=== PATIENT | male | born 1955 | race Hispanic/Latino ===

== ENCOUNTER → 2022-01-24 14:42 | Outpatient (CLI) | payer OTHER, MEDICAID, SELFPAY ==
[2022-01-24 16:13] LABS: Appearance Urine UA CLEAR; Bilirubin Urine UA NEGATIVE (NEGATIVE); Color Urine UA YELLOW; Glucose Urine UA 3+ g/dL (Negative); Ketones Urine UA NEGATIVE (NEGATIVE); Leukocyte Esterase Urine UA NEGATIVE (NEGATIVE); Nitrite Urine UA NEGATIVE (Negative); Occult Blood Urine UA NEGATIVE (Negative); Protein Urine UA NEGATIVE (Negative); Specific Gravity Urine UA 1.015 (1.000-1.035); Urobilinogen Urine UA 0.2 E.U./dL (0.2)
[2022-01-24 16:16] LABS: Add Manual Diff / Slide Review NO; Basophils Absolute Auto 0 /uL (0-100); Basophils Percent Auto 0.2 % (0-2); Eosinophils Absolute Auto 100 /uL (0-450); Eosinophils Percent Auto 1.9 % (2-4); Hemoglobin 14.7 g/dL (13.5-17.5); Lymphocytes Absolute Auto 2300 /uL (1100-4500); Lymphocytes Percent Auto 29.8 % (25-40); Mean Corpuscular HGB Conc 34.2 % (30-36); Mean Corpuscular Hemoglobin 28.8 PG (26-34); Mean Corpuscular Volume 84.3 fL (80-100); Monocytes Absolute Auto 400 /uL (0-900); Monocytes Percent Auto 4.9 % (3-14); Neutrophils Absolute Auto 4900 /uL (1500-7000); Neutrophils Percent Auto 63.2 % (50-75); Platelet Count 221 X10^3/uL (150-400); Red Blood Cell Count 5.09 X10^6/uL (4.5-5.9); Red Cell Distribution Width 13.8 % (11.6-14.8); White Blood Cell Count 7.7 X10^3/uL (4.5-11.0)
[2022-01-24 16:18] LABS: Bacteria Urine None Seen; Calcium Oxalate Crystals Urine Few; Culture Indicated Urine Cult Not Indicated; RBC Urine None Seen (0-5/HPF); WBC Urine None Seen (0-5/HPF)
[2022-01-24 16:24] LABS: Hemoglobin A1C% w Est Avg Glu 13.7 % (4.0-6.0)
[2022-01-24 16:40] LABS: Creatinine Urine Random 86.8 mg/dL
[2022-01-24 16:54] LABS: Protein (Total) Urine Random < 5 mg/dL (0-12); Protein Creatinine Ratio Urine 0.05 GRAM/24H
[2022-01-24 17:23] LABS: Alanine Aminotransferase 22 IU/L (<50); Albumin 4.3 g/dL (3.5-5.0); Albumin Globulin Ratio 1.3 (1.0-2.8); Alkaline Phosphatase 74 U/L (38-126); Aspartate Aminotransferase 22 IU/L (17-59); BUN Creatinine Ratio 30.6 (6-22); Bilirubin Total 0.5 mg/dL (0.2-1.3); Blood Urea Nitrogen 19 mg/dL (9-20); Calcium 9.5 mg/dL (8.4-10.2); Carbon Dioxide 29 mmol/L (22-32); Chloride 96 mmol/L (98-107); Cholesterol 216 mg/dL (140-199); Estimated Glomerular Filt Rate > 60 mL/min (>60); Globulin 3.4 g/dL (1.7-4.1); Glucose 322 mg/dL (80-110); HDL Cholesterol 39 mg/dL (40-60); HEMOLYSIS < 15 (0-50); LDL Cholesterol Calculated 126 mg/dL (<100); Potassium 4.3 mmol/L (3.4-5.1); Sodium 137 mmol/L (137-145); Total Protein 7.7 g/dL (6.3-8.2); Triglycerides 254 mg/dL (35-150)
== END ==
PROVIDERS: PCP Family Medicine; Referring Provider Family Medicine; Visit Provider Family Medicine
DX: E11.65 Type 2 diabetes mellitus with hyperglycemia (principal)
CPT/HCPCS: 36415; 80053; 80061; 81001; 82570; 83036; 84156; 85025

== ENCOUNTER → 2022-05-11 13:46 | Outpatient (CLI) | payer OTHER, MEDICAID, SELFPAY ==
--- NOTE | 2022-05-30 13:44 | DIAB.INIT ---
Addendum entered by Rupa Tinajero 06/01/22 17:31: Called Marie today: Taking 18u Levemir with FBG 290-300. BG in evening are 210-250. Unusually that FBG are higher than last call despite increase in insulin. Reminded him to be sure he is fasting for morning blood sugars and to follow titration schedule from provider. Encouraged an increase to 22u tonight. Will see him for follow-up next week. Addendum entered by Rupa Tinajero 05/30/22 14:08: Called Marie on 05/18: reports itching has not improved. Reports FBG recently 150-220mg/dl (improved from visit). Currently on 10u Levemir. We reviewed titration schedule. Original Note: Initial Diabetes Education Assessment Name: Marie Francisco Date: 05/11/22 Time: 2-310p Dx: Type II Diabetes Provider: Susy Marie presents today with step daughter, Johanna. Attempted to use telephonic staff analyst, however was unsuccessful due to translation phone was not working properly. Johanna interpreted for today's appointment. Reports Dm dx for 20 years. +FH of DM with mother and sister. Marie reports he dislikes taking so many pills and is happy to be starting insulin. He believes the pills are making him feel sick and itchy. Current symptoms include: diarrhea ~1x/2 wks, little appetite, itchy sensations, feeling of sickness.?Has not picked up insulin yet. Needs additional info on how to inject. Diet Recall: B: (8:30 am, sometimes noon) 2 corn or flour quesadillas with 2 scrambled eggs, cheese, and 1/4 cup beans OR fruit smoothie - fiber, cactus, aloe, cucumber, chayote, water OR leftovers if wakes up later - potato and eggs OR pancakes.? L: (1:30-2:00 am) chx soup with veggies and 1 cup of rice on side OR spaghetti. S: sometimes cup of noodle soup 1-2x/wk. D: (5:30-6:00 pm) 3 taquitos?with beans and salsa OR occasionally?no dinner.? S: peanuts or sunflower seeds. Fluids: 24 oz coffee with 4 oz milk and 2 packets splenda, ~8 oz water, occasionally 12 oz milk.? Marie lives with and stepdaughter, who run a childcare program at home. Anthropometrics: Ht: 5'7 Wt: 159# Weight history: No recent wt loss. When diagnosed 20 years ago, lost wt due to cutting out sugar, ie soda. At that time, UBW was between 170-180 lbs.? Physical Activity: : No program. Reports being depressed due to weather (used to live in [place]). Has a hard time walking due to knee pain. Self-Monitoring Blood Glucose: Reports checking FBG every morning, all elevated. Recent FBG 05/06 - 251 05/07 - 231 05/08 - 180 05/09 - 213 05/10 - 223 05/11 - Diabetes Medications: Metformin 1000mg Glyburide 5mg Rx: Victoza 1.2 Rx: Levemir 10u HS (inc by 4u q 3 days if BG >180) per provider notes Pertinent Labs: HgA1c: 9.8%?Apr 2022 Past Medical History: Reported: HTN, HLD, eye/vision problems, diarrhea, numbness/tingling in extremities, weakness Intervention: This participant was very receptive. Provided appropriate educational handouts. Discussed the following topics: Completed intake assessment. Discussed barriers to care. Reviewed insulin use: how to inject safely, precautions, disposal Reviewed Bahamian handout on hypoglycemia tx Reviewed Bahamian handout on plate method and carb counting Recommend BG checks when feeling s/s of lows Encouraged safe physical activity, even seated exercise if able Created SMART goals for patient self-care and success. Goals: When weak and/or shaky, check BG Start new medications Drink 2 glasses of water/day min Follow-up: JAVON HALE follow-up in 1 week via phone to review how insulin regimen is going. Then 1:1 follow-up in one month Rupa Tinajero RDN, GEOFFREY Certified Diabetes Care and Rn X Ray P: [phone] Thank you for this referral
== END ==
PROVIDERS: PCP Family Medicine; Referring Provider Family Medicine; Visit Provider Family Medicine
DX: E11.9 Type 2 diabetes mellitus without complications (principal); Z79.84 Long term (current) use of oral hypoglycemic drugs; Z79.4 Long term (current) use of insulin; Z71.3 Dietary counseling and surveillance
CPT/HCPCS: G0108

== ENCOUNTER → 2022-06-07 14:47 | Outpatient (CLI) | payer MEDICAID, SELFPAY ==
--- NOTE | 2022-06-09 10:30 | DIAB.FU ---
Addendum entered by Rupa Tinajero 06/09/22 10:53: Called pt today and LVM with parts interpreter. Johanna (daughter) called back. Confirmed he is not taking DM oral meds. Is taking his statin. BG much improved over the last two days with FBG 174 and 164mg/dl. Encouraged increase by 2u tomorrow night if FBG tomorrow is >150mg/dl. She verbalized understanding. Original Note: Follow-up Diabetes Education Assessment Name: Marie Francisco Date: 06/07/22 Time: 320-415p Dx: Type II Diabetes Provider: Susy Salazar presents for follow-up DM education. Daughter normally translates but is not here today. Use of Argentine telephonic freelance interpreter/translator used. Reports since d/c of oral DM meds GI is much improved. Was taking med with food, which did not help per report. Reports very limited appetite, which may be a r/t of GLP1 RA. Endorses 2 eating occurrences per day (9am: eggs, beans, two tortillas; 4p: soup with 2-3 tortillas). Also endorses limited water in a day, 8oz. Continues to have pruritis. States this will keep him up at night. Plans to see underwear trimmer Anthropometrics: Ht: 67 Wt: 146.6# today Weight history: Down 12# since last visit 05/11. This is concerning for malnutrition. Physical Activity: No program currently. Main barrier is concerns for weakness and knee pain. Self-Monitoring Blood Glucose: BG continue to be elevated despite increase in insulin, however this may also be r/t the d/c of oral medication. Will then needs additional insulin for coverage. Also, has not continued titration since last phone discussion. Date Pre Post Pre Post Pre Post HS 06/01 262 216 3/2 233 297 06/03 218 242 /4 281 242 5 250 260 06/06 204 228 06/07 194 Diabetes Medications: Metformin 1000mg - not taking Glyburide 5mg - not taking Victoza 1.2 Levemir 20u HS (inc by 4u q 3 days if BG >180) per provider notes Pertinent Labs: HgA1c: 9.8%?Apr 2022 Past Medical History: Reported: HTN, HLD, eye/vision problems, diarrhea, numbness/tingling in extremities, weakness Intervention: This participant was very receptive. Provided appropriate educational handouts. Discussed the following topics: Recent blood sugar results and trends Medication management: increasing insulin by 4u tonight, consistent with PCP titration schedule Importance of consistent kcal and pro intake How Victoza may impact appetite Impact of pruritis on his sleep and overall health, including sleep and BG Physical activity plan and impact on blood sugars Fluids intake recs Created SMART goals for patient self-care and success. Goals: When weak and/or shaky, check BG- continue Start new medications- met Drink 2 glasses of water/day min- in progress Increase insulin to 24u tonight- new Eat 3x per day or more- new Follow-up: JAVON HALE follow-up in 3-4 weeks. Will call in 2-3 days to follow-up on BG and titration schedule. Rupa Tinajero RDN, CDCES Certified Diabetes Care and Autos Disassembler P: [phone] Thank you for this referral
== END ==
PROVIDERS: PCP Family Medicine; Referring Provider Family Medicine; Visit Provider Family Medicine
DX: E11.9 Type 2 diabetes mellitus without complications (principal); Z79.84 Long term (current) use of oral hypoglycemic drugs; Z79.4 Long term (current) use of insulin; Z71.3 Dietary counseling and surveillance
CPT/HCPCS: G0108

== ENCOUNTER → 2022-06-30 14:51 | Outpatient (CLI) | payer MEDICAID, SELFPAY ==
--- NOTE | 2022-07-15 10:42 | DIAB.FU ---
Addendum entered by Rupa Tinajero 07/15/22 16:25: Called and LVM to call back to review insulin titration and BG Original Note: Follow-up Diabetes Education Assessment Name: Marie Francisco Date: 06/30/22 Time: Dx: Type II Diabetes Provider: Susy Salazar presents for follow-up. Declined spanish interpreter/translator. Did not bring his family member to translate. States he can understand most Grenadian. Reports improved strength recently and working a couple days per week. Still struggling with sleep and feeling itchy. Has senior software development engineer appt scheduled. Weight has improved by almost 2#. Did not increase insulin as discussed over the phone. Still at 20u HS. BG still elevated. Increased water intake since last visit. Current carb intake continues to be moderate to low. Eating twice per day. Anthropometrics: Ht: 67 Wt: 148.2# today Last Wt: 146.6# 06/07/22 Physical Activity: No program Self-Monitoring Blood Glucose: Higher than those reported over last phone call. Reports FBG 176-262 and HS readings 216-394 mg/dl. Has not increased insulin as discussed. Diabetes Medications: Metformin 1000mg - not taking Glyburide 5mg - not taking Victoza 1.2 Levemir 20u HS (inc by 4u q 3 days if BG >180) per provider notes Pertinent Labs: HgA1c: 9.8%?Apr 2022 Past Medical History: Reported: HTN, HLD, eye/vision problems, diarrhea, numbness/tingling in extremities, weakness Intervention: This participant was very receptive. Provided appropriate educational handouts. Discussed the following topics: Recent blood sugar results and trends Medication management and increasing insulin Impact of elevated BG on health and potentially skin Review of general nutrition recommendations and current intake Provided insulin titration scheduled in Grenadian and Kinyarwanda with his help Created SMART goals for patient self-care and success. Goals: Drink 2 glasses of water/day min- met Increase insulin to 24u tonight-not met Eat 3x per day or more- in progress Tonight 24u insulin Every 2-3 days increase insulin by 4 u until <180mg/dl Then increase q 2-3 days by 2u until <150mg/dl Follow-up: JAVON HALE follow-up in 3 weeks for phone call and 4-5 weeks 1:1 follow-up Rupa Tinajero RDN, GEOFFREY Certified Diabetes Care and Park Services Specialist P: [phone] Thank you for this referral
== END ==
PROVIDERS: PCP Family Medicine; Referring Provider Family Medicine; Visit Provider Family Medicine
DX: E11.9 Type 2 diabetes mellitus without complications (principal); Z79.4 Long term (current) use of insulin; Z79.84 Long term (current) use of oral hypoglycemic drugs; Z71.3 Dietary counseling and surveillance
CPT/HCPCS: G0108

== ENCOUNTER → 2022-08-04 14:18 | Outpatient (CLI) | payer MEDICARE, MEDICAID, SELFPAY ==
--- NOTE | 2022-08-04 16:07 | DIAB.MNTFU ---
Follow-up Diabetes Medical Nutrition Therapy Assessment Name: Marie Francisco Date: 08/04/22 Time: 235-315p Dx: Type II Diabetes Marie presents today for diabetes follow-up. Blood sugars finally improving; however, he did not titrate how we discussed last visit. Up to 26u and still having some elevations. States he feels blood sugars have improved some with more activity, working a few days per week inconsistently. Reports some improvement in pruritis, though most irritating at night. Despite this, states his sleep has improved. 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 Diet recall indicates eating 2-3x per day. Not a big change in weight. Still some concern for underweight/malnutrition. Started making a homemade tea with herbs (cinnamon, oregano, patricio, and mint). Feels this is helping his BG. Diet Recall: 7-8a: nothing or egg with 2-3 6 tortillas with cheese and beans 2-230p: 1/2c rice, with meat 7p: nothing or eggs with spoon of beans and spoon of rice or just 2 tortillas with egg Beverages: homemade tea with herbs, water, coffee with 1/3 c milk Anthropometrics: Ht: 67 Wt: 148.6# today Wt hx: 148.2# 06/30/22 146.6# 06/07/22 originally reported 159# at first RD visit Physical Activity: No program. 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 Does c/o knee pain with exercise. No exercise on days without work. States he is open to short walks on days off. Self-Monitoring Blood Glucose: 6/7 elevated FBG and 5/6 elevated 1 hour after dinner readings. Date Pre Post Pre Post Pre Post HS 187 310 224 229 146 254 121 183 170 254 180 156 163 Diabetes Medications: Victoza 1.2 Levemir 26u HS (inc by 4u q 3 days if BG >180) per provider notes Pertinent Labs: HgA1c: 9.8%?Apr 2022 Past Medical History: Reported: HTN, HLD, eye/vision problems, diarrhea, numbness/tingling in extremities, weakness Nutrition Rx: Carbohydrates: Meal:45g Snack:15-30g Nutrition Diagnosis: Inadequate energy intake r/t limited appetite aeb pt report and diet recall Physical inactivity r/t no program on days off, knee pain, and potentially stage of change barrier aeb pt report Intervention: This participant was very receptive. Provided appropriate educational handouts. Discussed the following topics: Blood sugar review and trends. Insulin titration Physical activity and impact on BG Importance of balanced meals and snacks and eating frequency Rule of 15 tx for lows Created SMART goals for patient self-care and success. Goals: Tonight 24u insulin- met Every 2-3 days increase insulin by 4 u until <180mg/dl- met Then increase q 2-3 days by 2u until <150mg/dl- not met Increase to 28u tonight- new Eat 3x per day- new Walk on days off- new Follow-up: JAVON HALE follow-up in 3-4 weeks Rupa Tinajero RDN, CAINES Certified Diabetes Care and Energy Efficient Site Manager P: [phone] Thank you for this referral
== END ==
PROVIDERS: PCP Family Medicine; Referring Provider Family Medicine; Visit Provider Family Medicine
DX: E11.9 Type 2 diabetes mellitus without complications (principal); Z79.84 Long term (current) use of oral hypoglycemic drugs; Z79.4 Long term (current) use of insulin; Z71.3 Dietary counseling and surveillance
CPT/HCPCS: 97803

== ENCOUNTER → 2022-08-30 07:12 | Outpatient (CLI) | payer MEDICARE, MEDICAID, SELFPAY ==
[2022-08-30 09:11] LABS: Creatinine Urine Random 160.9 mg/dL
[2022-08-30 09:14] LABS: Microalbumi Creatinin Ratio Ur 4.3 ug/mg CR (<30); Microalbumin Urine Random 0.7 mg/dL (0-1.6)
[2022-08-31 02:07] LABS: x Labcorp Estim. Avg Glu (eAG) 209 mg/dL (.); x Labcorp Hemoglobin A1c 8.9 % (4.8-5.6)
== END ==
PROVIDERS: PCP Family Medicine; Referring Provider Family Medicine; Visit Provider Family Medicine
DX: E11.65 Type 2 diabetes mellitus with hyperglycemia (principal)
CPT/HCPCS: 36415; 82043; 82570; 83036

== ENCOUNTER → 2022-10-28 16:07 | Outpatient (CLI) | payer MEDICARE, MEDICAID, SELFPAY ==
[2022-10-28 17:49] LABS: Hematocrit 41.9 % (41-53); Hemoglobin 14.2 g/dL (13.5-17.5); Mean Corpuscular HGB Conc 33.9 % (30-36); Mean Corpuscular Hemoglobin 28.2 PG (26-34); Mean Corpuscular Volume 83.3 fL (80-100); Platelet Count 198 X10^3/uL (150-400); Red Blood Cell Count 5.03 X10^6/uL (4.5-5.9); Red Cell Distribution Width 13.4 % (11.6-14.8); White Blood Cell Count 7.9 X10^3/uL (4.5-11.0)
[2022-10-28 18:38] LABS: Alanine Aminotransferase 22 IU/L (<50); Albumin 4.5 g/dL (3.5-5.0); Albumin Globulin Ratio 1.5 (1.0-2.8); Alkaline Phosphatase 77 U/L (38-126); Aspartate Aminotransferase 21 IU/L (17-59); BUN Creatinine Ratio 31.7 (6-22); Bilirubin Total 0.5 mg/dL (0.2-1.3); Blood Urea Nitrogen 19 mg/dL (9-20); Calcium 9.5 mg/dL (8.4-10.2); Carbon Dioxide 31 mmol/L (22-32); Chloride 98 mmol/L (98-107); Cholesterol 209 mg/dL (140-199); Estimated Glomerular Filt Rate > 60 mL/min (>60); Globulin 3.1 g/dL (1.7-4.1); Glucose 257 mg/dL (80-110); HDL Cholesterol 45 mg/dL (40-60); HEMOLYSIS < 15 (0-50); LDL Cholesterol Calculated 123 mg/dL (<100); Potassium 4.2 mmol/L (3.4-5.1); Sodium 138 mmol/L (137-145); Total Protein 7.6 g/dL (6.3-8.2); Triglycerides 206 mg/dL (35-150)
[2022-10-28 19:07] LABS: TSH w/ Reflex to FT4 2.39 uIU/mL (0.47-4.68)
== END ==
PROVIDERS: PCP Internal Medicine; Referring Provider Internal Medicine; Visit Provider Internal Medicine
DX: C18.9 Malignant neoplasm of colon, unspecified (principal); E11.42 Type 2 diabetes mellitus with diabetic polyneuropathy; E78.2 Mixed hyperlipidemia
CPT/HCPCS: 36415; 80053; 80061; 82378; 84443; 85027

== ENCOUNTER → 2022-11-18 09:17 | Outpatient (CLI) | payer MEDICARE, OTHER, MEDICAID, SELFPAY ==
--- NOTE | 2022-11-18 09:19 | DI.CT.S_ITS ---
PROCEDURE: CT ABDOMEN PELVIS W CON INDICATIONS: Upper abdominal pain, unspecified TECHNIQUE: After the administration of oral and intravenous contrast, axial sections were acquired from the lung bases to the pubic symphysis. Coronal and sagittal reformats were performed. For radiation dose reduction, the following was used: automated exposure control, adjustment of mA and/or kV according to patient size. COMPARISON:None. FINDINGS: Image quality: Excellent. Lung bases: Unremarkable. Heart: Mild coronary artery calcifications. ABDOMEN: Liver: Unremarkable. Gallbladder: Unremarkable. Biliary ducts: Unremarkable. Pancreas: Unremarkable. Spleen: Unremarkable. Adrenal Glands: Unremarkable. Kidneys and Ureters: Unremarkable. Stomach and Bowel: Stomach, small bowel loops, and colon are unremarkable. Duodenal diverticulum. Normal appendix. Peritoneum: No abnormal intraperitoneal fluid. No free air. Ventral Wall: No hernia. Abdominal Nodes: No retroperitoneal or mesenteric adenopathy by size criteria. Vessels: Aorta and inferior vena cava are normal in size. Atherosclerotic vascular calcifications. PELVIS: Pelvic Organs: Unremarkable. Bladder: Unremarkable. Pelvic Nodes: No enlarged lymph nodes. Miscellaneous: No inguinal hernias are seen. Bones: Mild degenerative changes of the spine. IMPRESSION: No cause for patient's symptoms is identified. No acute intra-abdominal findings. Dictated by: Adrian Murphy M.D. on 11/18/2022 at 13:47 Approved by: Adrian Murphy M.D. on 11/18/2022 at 13:53
== END ==
PROVIDERS: PCP Internal Medicine; Referring Provider Internal Medicine; Visit Provider Internal Medicine
DX: R10.10 Upper abdominal pain, unspecified (principal); I25.10 Atherosclerotic heart disease of native coronary artery without angina pectoris; N32.3 Diverticulum of bladder
CPT/HCPCS: 74177; Q9967

== ENCOUNTER 2022-12-13 13:01 | Day surgery (SDC) | payer MEDICARE, MEDICAID, SELFPAY ==
--- NOTE | 2022-12-13 | PATH_ITS ---
[facility] Accession Number: [id number] No. of containers..01 Tissue . 01 Material submitted: . colon - ASCENDING COLON POLYPS . 01 Diagnosis: Ascending Colon Polyps, Biopsy: Foreign body material only. No colonic tissue identified. MRV 12/21/2022 1129 Local . 01 Electronically signed: . Alivia Walker MD, Pathologist NPI- [id number] . 01 Gross description: . ASCENDING COLON POLYPS: Received in formalin is multiple fragment(s) of dawkins, soft tissue measuring 1.0 x 0.5 x 0.1 cm in aggregate submitted entirely in 1 cassette(s) /AAY 12/15/2022 2346 Local . 01 Pathologist provided ICD-10: Z12.11 . 01 CPT . 447124 Specimen Comment: A courtesy copy of this report has been sent to [phone] Performed at: 01 [facility] [address] [place] [address] [id number] MD Christopher Ram MD Phone: [phone]
[2022-12-13] MEDS: LACTATED RINGERS 1,000 ML 200 ML IV (13:46)
[2022-12-13 13:50] VITALS: BP 127/85; PULSE 97; RESP 16; TEMP 36.2; O2SAT 97
--- NOTE | 2022-12-13 14:07 | PM.HP.1 ---
History of Present Illness History of Present Illness Date Patient Seen: 12/13/22 Time Patient Seen: 14:07 [address]: [facility] Narrative: 67-year-old man with abdominal pain here for diagnostic esophagoduodenoscopy and screening colonoscopy. No interval change in health. Please refer to the H and P from November 2022 for further detail. [facility] Medical History Mixed hyperlipidemia Pain of upper abdomen Type 2 diabetes mellitus with polyneuropathy Social History marital status: unknown household members: spouse and family lives independently: Yes occupational status: previously employed Smoking Status: Former smoker Tobacco: How many years used: 7 alcohol intake: never substance use type: does not use Meds Home Medications and Allergies Home Medications Medication Instructions Recorded Confirmed Type blood-glucose meter #1 ea 05/02/22 11/28/22 Rx blood sugar diagnostic (Blood #100 ea 05/31/22 11/28/22 Rx Glucose Test strips) lancets 33 gauge (BD Ultra Fine #100 ea 05/31/22 11/28/22 Rx Lancets) atorvastatin 40 mg tablet 40 mg PO BEDTIME #90 tabs 06/21/22 12/13/22 Rx liraglutide 0.6 mg/0.1 mL (18 mg/3 1.2 mg (0.2 mL) SUBCUT DAILY #6 mL 09/30/22 12/13/22 Rx mL) subcutaneous pen injector (Victoza 2-Travis) Disabled Parking Permit 1 ea Not Applicable DAILY #1 ea 10/28/22 11/28/22 Rx Walking Cane #1 ea 10/28/22 11/28/22 Rx pen needle, diabetic 31 gauge x #1,200 ea 10/28/22 11/28/22 History 5/16 (1st Tier Unifine Pentips) Allergies Allergy/AdvReac Type Severity Reaction Status Date / Time metformin AdvReac Intermediate Diarrhea Verified 12/13/22 13:30 Exam Vital Signs (past 8 hours): - 12/13/22 13:50 Temperature 97.2 F L Pulse Rate 97 H Respiratory Rate 16 Blood Pressure 127/85 Pulse Oximetry 97 Oxygen Delivery Method Room Air Oxygen Delivery Method Room Air Narrative Exam Narrative: General adult man alert oriented no acute distress Abdomen soft nontender nondistended Assessment & Plan Assessment and plan (1) Pain of upper abdomen: Status: Acute Assessment & Plan narrative: 67-year-old man history of peptic ulcer disease here for diagnostic esophagoduodenoscopy and colonoscopy. Technical details were discussed. Risks, benefits, alternatives explained. Risks including but not limited to myocardial infarction, aspiration, bleeding, pain, missed lesion, incomplete examination, need for further radiographic studies, colonic perforation, and need for major abdominal surgery were discussed. All questions were answered to their satisfaction, and they are in agreement with this plan.
--- NOTE | 2022-12-13 14:13 | PM.OP.EC ---
Operative Date/Time/Diagnoses Date of procedure: 12/13/22 Time of procedure: 14:13 Pre-op diagnosis: Abdominal pain Post-op diagnosis: other (Colonic polyps x2) Procedure & Clinicians Study performed: Esophagoduodenoscopy colonoscopy Same procedure as scheduled: Yes Indications: 67-year-old man with history of gastric ulcer with abdominal pain here for diagnostic esophagoduodenoscopy and screening colonoscopy Surgeon: Elie Quinn Procedure Notes Procedure in detail: The history and physical was performed/updated and the patient is ASA class is 2. The procedure was discussed in detail with the patient. Potential risks complications including infection, bleeding, missed diagnosis, perforation, need for surgery, and were explained. Their questions were answered and informed consent was obtained. Patient placed in left lateral decubitus position. Time out was performed. Procedural sedation was administered by Anesthesia. A bite block was placed. the scope was inserted into the mouth and advanced through the esophagus and into the stomach. The stomach was without masses, ulcers or gastritis. The pylorus was intubated and the duodenum was normal to the 2nd portion. The scope was withdrawn into the esophagus the Z line was seen at 35 cm from the incisions. There was no Lyman's esophagitis, esophageal masses or strictures. Stomach was desufflated and scope removed. Examination began with a thorough inspection of the perianal area there was no evidence of fissures, fistulae, external hemorrhoids or cutaneous malignancy. The colonoscopy scope was then placed into the anal canal and was advanced to the cecum, which was identified by the ileocecal valve, the appendiceal orifice and the confluence of the taenia. The scope was then slowly withdrawn examining colon thoroughly in all directions, irrigating it of any residual stool. Ascending colon-3-5 mm polyps x2 removed with cold snare. Remainder of the colon unremarkable The patient tolerated the procedure well. They will be discharged once criteria are met. The prep was of good/excellent quality. The withdrawl time was 6 minutes. Specimen(s): none sent (Ascending colon polyps) Impression: Unremarkable upper endoscopy. Colonic polyps x2 Post-procedure Plan for aftercare: Follow-up is dependent on pathology findings likely 5 years Disposition: same day surgery
[2022-12-13 14:15] VITALS: BMI 23.5
[2022-12-13 14:40] VITALS: BP 98/67; PULSE 86; RESP 15; TEMP 36.9; O2SAT 96
[2022-12-13 14:45] VITALS: BP 99/70; PULSE 83; RESP 13; TEMP 36.9; O2SAT 96
[2022-12-13 14:55] VITALS: BP 111/75; PULSE 81; RESP 13; O2SAT 96
[2022-12-13 15:00] VITALS: BP 130/78; PULSE 86; RESP 15; O2SAT 97
[2022-12-13 15:15] VITALS: BP 130/85; PULSE 86; RESP 14; O2SAT 96
== END 2022-12-13 15:30 | disposition home or self-care (01) ==
PROVIDERS: PCP Internal Medicine; Referring Provider Surgery; Visit Provider Surgery
PROC: 0DJ08ZZ Inspection of Upper Intestinal Tract, Via Natural or Artificial Opening Endoscopic (ICD-10-PCS; CPT 43235; principal; 2022-12-13 14:45)
PROC: 0DJD8ZZ Inspection of Lower Intestinal Tract, Via Natural or Artificial Opening Endoscopic (ICD-10-PCS; CPT 45378; 2022-12-13 14:45)
DX: R10.9 Unspecified abdominal pain (principal); K63.5 Polyp of colon
CPT/HCPCS: 45385; 43235; J2704

== ENCOUNTER → 2022-12-29 12:07 | Outpatient (CLI) | payer MEDICARE, MEDICAID, SELFPAY ==
[2022-12-29 13:25] LABS: Hemoglobin A1C% w Est Avg Glu 7.9 % (4.0-6.0)
== END ==
PROVIDERS: PCP Internal Medicine; Referring Provider Internal Medicine; Visit Provider Internal Medicine
DX: E11.42 Type 2 diabetes mellitus with diabetic polyneuropathy (principal)
CPT/HCPCS: 36415; 83036

== ENCOUNTER → 2023-06-28 15:59 | Outpatient (CLI) | payer MEDICARE, MEDICAID, SELFPAY ==
[2023-06-28 18:11] LABS: Hematocrit 41.3 % (41-53); Hemoglobin 13.7 g/dL (13.5-17.5); Mean Corpuscular HGB Conc 33.3 % (30-36); Mean Corpuscular Hemoglobin 28.2 PG (26-34); Mean Corpuscular Volume 84.8 fL (80-100); Platelet Count 253 X10^3/uL (150-400); Red Blood Cell Count 4.87 X10^6/uL (4.5-5.9); Red Cell Distribution Width 13.1 % (11.6-14.8); White Blood Cell Count 7.6 X10^3/uL (4.5-11.0)
[2023-06-28 18:21] LABS: Hemoglobin A1C% w Est Avg Glu 9.6 % (4.0-6.0)
[2023-06-28 18:55] LABS: BUN Creatinine Ratio 31.1 (6-22); Blood Urea Nitrogen 19 mg/dL (9-20); Calcium 9.7 mg/dL (8.4-10.2); Carbon Dioxide 30 mmol/L (22-32); Chloride 100 mmol/L (98-107); Estimated Glomerular Filt Rate > 60 mL/min (>60); Glucose 204 mg/dL (80-110); HEMOLYSIS < 15 (0-50); Potassium 4.9 mmol/L (3.4-5.1); Sodium 138 mmol/L (137-145)
[2023-06-28 19:16] LABS: Erythrocyte Sedimentation Rate 24 MM/HR (0-15)
[2023-06-29 20:07] LABS: C-Reactive Protein Quant 1.3 mg/dL (<1.0)
== END ==
PROVIDERS: PCP Internal Medicine; Referring Provider Internal Medicine; Visit Provider Internal Medicine
DX: E11.42 Type 2 diabetes mellitus with diabetic polyneuropathy (principal); M35.3 Polymyalgia rheumatica
CPT/HCPCS: 36415; 80048; 83036; 85027; 85651; 86140

== ENCOUNTER → 2023-12-07 13:05 | Outpatient (CLI) | payer MEDICARE, MEDICAID, SELFPAY ==
[2023-12-07 15:40] LABS: Creatinine Urine Random 49.84 mg/dL
[2023-12-07 15:53] LABS: Microalbumin Urine Random < 0.6 mg/dL (0-1.6)
== END ==
PROVIDERS: PCP Internal Medicine; Visit Provider Internal Medicine
DX: E11.42 Type 2 diabetes mellitus with diabetic polyneuropathy (principal)
CPT/HCPCS: 82043; 82570

== ENCOUNTER → 2024-04-30 14:55 | Outpatient (CLI) | payer MEDICARE, MEDICAID, SELFPAY ==
--- NOTE | 2024-04-30 14:58 | DIAB.MNT ---
Initial Diabetes Medical Nutrition Therapy Assessment Name: Marie Francisco Date: 04/30/24 Time: 3-415 Dx: Type II Diabetes Marie presents today for diabetes follow-up with telephonic recordist chief. Last visit 08/2022. Was taking 1.2mg Victoza and 26u HS insulin with improving BG, however today he arrives with BG consistently in the 250-500+. He is up to 50u of insulin. He has self discontinued Victoza. States his insurance would not cover it, but also reports reduced nausea/vomiting since d/c. Reports Victoza was making him feel sick daily. Prefers not to restart. Upon further discussion, he is not taking Jaridance or his statin. In general, Marie seems somewhat skeptical of taking medications. States his health in general has worsened since moving to [place] where he works much less, moves much less and has to take more medication per report. Also reports his checks his BG and gives him his insulin at night. If he is out of town or she is gone, he does not check BG or get his insulin. Today he describes going out of the country [place] 2[place]4 weeks and not taking any DM medications at that time. States making nutrition changes is difficult with his cultural diet. Likes very few veggies. When eating out chooses soda. Called his daughter, Glendy, to confirm DM meds and what occurred with pharmacy regarding DM meds. She reports pharmacy was going to reach out to provider's office regarding GLP1. No knowledge of SGLT2i rx. Diet Recall: 7-8a: egg with 3 6-8 tortillas with 1/3c beans +/- potatoes sn: nothing or fruit 5p: 2-4 tortillas with beef soup and 1/4c beans 7p: nothing or corn flakes 1/2-1c with milk and banana 2-3x per week 20+ oz coffee with splenda and 1/4c milk 8-16oz water or none Anthropometrics: Ht: 67 Wt: 161# 02/2024 Wt hx: 148.2# 06/30/22 146.6# 06/07/22 originally reported 159# at first RD visit Physical Activity: No program. Self-Monitoring Blood Glucose: BG significantly elevated with more BG in the >250 range since last visit in 2022. Interested in CGM sample. 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 Provided appropriate educational handouts. Discussed the following topics: Blood sugar review and trends. Medication management: side effects, benefits, types of dm meds, his rx'd Dm meds, barriers to access Nutrition recs: moderation, including foods he enjoys and are culturally appropriate, portions, pairing with protein Veggies he likes Sugar soda v sugar free options CGM basics Importance of learning how to inject his own insulin when needed Encouraged some FBG checks Created SMART goals for patient self-care and success. Goals: Check into Jardiance (call pharmacy) Avoid cornflakes Sub fruit as a snack in the evening prn Follow-up: JAVON HALE follow-up in [address] a CGM with retread operator and complete an insulin injection demonstration. Rupa Tinajero RDN, GEOFFREY Certified Diabetes Care and Certified Lactation Educator P: [phone] Thank you for this referral
== END ==
PROVIDERS: PCP Internal Medicine; Referring Provider Internal Medicine
DX: E11.42 Type 2 diabetes mellitus with diabetic polyneuropathy (principal); Z71.3 Dietary counseling and surveillance; Z79.4 Long term (current) use of insulin
CPT/HCPCS: 97802

== ENCOUNTER → 2024-05-21 12:57 | Outpatient (CLI) | payer MEDICARE, MEDICAID, SELFPAY ==
--- NOTE | 2024-06-13 15:26 | DIAB.FU ---
Follow-up Diabetes Education Assessment Name: Marie Francisco Date: 05/21/24 Time: 105-205p Dx: Type II Diabetes Provider: Cara Marie presents for DM visit, using telephonic educational interpreter. PCP and RD have discussed potential for both CGM and insulin pump therapy for Marie. Today he is open to a CGM sample using a water and sewer systems supervisor. Reports missing blood sugar checks and sometimes insulin injections if his is not home. He does not want to check his BG or give his own insulin injections. BG in goal or close to for FBG but often elevated by evening. Not open to an insulin pump at this time, but open to further discussions. States he has not had cereal for a while. Will consider keeping a food journal with the CGM sample. Anthropometrics: Ht: 67 Wt: 166.5# 05/2024 Wt hx: 161# 02/2024 148.2# 06/30/22 146.6# 06/07/22 originally reported 159# at first RD visit Physical Activity: No program. Self-Monitoring Blood Glucose: 05/10 elevated FBG. 08/06 elevated HS. HS readings have improved but still above target. Provided education on CGM self placement of sample today. Will wear x 10.5 days. 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 Provided appropriate educational handouts. Discussed the following topics: Blood sugar review and trends. CGM education, precautions, and self placement Function of CGM and insulin pumps Carb foods and portions BG goals and risks of elevations over time Created SMART goals for patient self-care and success. Goals: Check into [facility] (call pharmacy)- met Avoid cornflakes - met Sub fruit as a snack in the evening prn- in progress Wear CGM x 10.5 days - new Follow-up: JAVON HALE follow-up in 3 weeks. Rupa Tinajero RDN, [facility] Certified Diabetes Care and Lean Six [employer] Black Belt P: [phone] Thank you for this referral
== END ==
PROVIDERS: PCP Internal Medicine; Referring Provider Internal Medicine
DX: E11.42 Type 2 diabetes mellitus with diabetic polyneuropathy (principal); Z79.4 Long term (current) use of insulin; Z71.3 Dietary counseling and surveillance
CPT/HCPCS: G0108

== ENCOUNTER → 2024-06-13 13:48 | Outpatient (CLI) | payer MEDICARE, MEDICAID, SELFPAY ==
--- NOTE | 2024-06-13 15:49 | DIAB.FU ---
Follow-up Diabetes Education Assessment Name: Marie Francisco Date: 06/13/24 Time: 2-3p Dx: Type II Diabetes Provider: Cara Salazar presents for DM visit, accompanied by his daughter Johanna. Wore CGM and enjoyed it. States he would like to move forward with CGM Rx. RD messaged PCP. He is on the fence about insulin pump therapy. Given he has missed injections due to his sometimes being unavailable to do his injections, and given his elevations with meals, he would likely benefit from insulin pump therapy. Seems he would otherwise benefit from MDI given recent CGM reports; however this RD has concerns that he would actually receive all injections since he does not do his own injections. Daughter agrees with this concern. States he does not like very much protein foods. Does like some veggies, but most food choices are carb based. States he does not feel too concerned about elevated BG as long as they are under 300mg/dl. No symptoms of hyperglycemia per report. Anthropometrics: Ht: 67 Wt: 166.5# 05/2024 Wt hx: 161# 02/2024 148.2# 06/30/22 146.6# 06/07/22 originally reported 159# at first RD visit Physical Activity: No program. Self-Monitoring Blood Glucose: CGM reports indicate excessive hyperglycemia later in the day, sometimes all day. TIR: 19% very high 33% high 48% in range 0% low <1% very low avmg/dl GMI: 7.8% std dev: 59mg/dl variance: 31.4% 05/21/24 Date Pre Post Pre Post Pre Post HS 05/14 121 192 05/15 106 267 13 153 342 14 157 236 15 76 175 16 74 208 05/21 93 Diabetes Medications: Glargine 30u BID Pertinent Labs: HgA1c: 9.6% 06/2023 10.4%12/2023 Past Medical History: (Last Reviewed 02/06/24 @ 12:31 by Shukri Marroquin MD) Mixed hyperlipidemia Pain of upper abdomen Tendinosis of left rotator cuff Type 2 diabetes mellitus with polyneuropathy Intervention: This participant was very receptive. Provided appropriate educational handouts. Discussed the following topics: Blood sugar review and trends. CGM education, precautions, and self placement with daughter. Likely he would need some assistance for placement with personal CGM sensors. Today daughter wanted to learn how to place a sensor. Function of CGM and insulin pumps Carb foods and portions BG goals and risks of elevations over time Potential coverage and benefits of insulin pump therapy Goals for TIR Created SMART goals for patient self-care and success. Goals: Wear CGM x 10.5 days - met Consider pump therapy- new Wear CGM x 10.5- new Follow-up: JAVON HALE follow-up in 2-3 weeks Rupa Tinajero RDN, [facility] Certified Diabetes Care and Horse Rancher P: [phone] Thank you for this referral
== END ==
LOC: DIET 13:51
PROVIDERS: Family Provider Internal Medicine; PCP Internal Medicine; Referring Provider Internal Medicine
DX: E11.65 Type 2 diabetes mellitus with hyperglycemia (principal); Z79.4 Long term (current) use of insulin; Z71.3 Dietary counseling and surveillance
CPT/HCPCS: G0108

== ENCOUNTER → 2024-06-19 15:26 | Outpatient (CLI) | payer MEDICARE, MEDICAID, SELFPAY ==
[2024-06-19 16:41] LABS: BUN Creatinine Ratio 21.7 (6-22); Blood Urea Nitrogen 18 mg/dL (9-20); Calcium 9.4 mg/dL (8.4-10.2); Carbon Dioxide 29 mmol/L (22-32); Chloride 103 mmol/L (98-107); Estimated Glomerular Filt Rate > 60 mL/min (>60); Glucose 139 mg/dL (80-110); HEMOLYSIS < 15 (0-50); Potassium 4.3 mmol/L (3.4-5.1); Sodium 140 mmol/L (137-145)
[2024-06-19 16:43] LABS: Hemoglobin A1C% w Est Avg Glu 7.4 % (4.0-6.0)
[2024-06-19 17:11] LABS: Prostate Specific Antigen 0.545 ng/mL (0.10-4.00)
== END ==
PROVIDERS: Family Provider Internal Medicine; PCP Internal Medicine; Referring Provider Internal Medicine; Visit Provider Internal Medicine
DX: E11.42 Type 2 diabetes mellitus with diabetic polyneuropathy (principal); N40.1 Benign prostatic hyperplasia with lower urinary tract symptoms; N13.8 Other obstructive and reflux uropathy; E11.40 Type 2 diabetes mellitus with diabetic neuropathy, unspecified
CPT/HCPCS: 36415; 80048; 83036; 84153

== ENCOUNTER → 2024-07-04 14:24 | Outpatient (CLI) | payer MEDICAID, SELFPAY ==
--- NOTE | 2024-07-26 13:06 | DIAB.MNTFU ---
Follow-up Diabetes Medical Nutrition Therapy Assessment Name: Marie Francisco Date: 07/04/24 Time: 245-330p Dx: Type II Diabetes Marie presents for DM visit. Reports he is more open to insulin pump therapy today. RD messaged PCP about getting labs done to confirm eligibility for pumps. Trying to eat more veggies per report. Diet recall: B: eggs beans 3 tortillas +/- beef sn: cucumber and celery D: 4 tortillas, protein , beans sn: glass of milk Anthropometrics: Ht: 67 Wt: 166.5# 05/2024 Wt hx: 161# 02/2024 148.2# 06/30/22 146.6# 06/07/22 originally reported 159# at first RD visit Physical Activity: No program. Self-Monitoring Blood Glucose: Checking FBG since d/c of CGM sample. FBG quite variable most elevated. TIR improved with recent CGM sample. 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 Provided appropriate educational handouts. Discussed the following topics: Blood sugar review and trends. Different pumps and eligibility Snack ideas CHO portion recommendations Created SMART goals for patient self-care and success. Goals: Consider pump therapy- met Wear CGM x 10.5- met Complete labs- new Try 3 tortillas per meal max- new Try nuts for snacks- new Follow-up: JAVON HALE follow-up in 3-[address] will coordinate with provider office and pt on insulin pump potential after eligibility is determined with labs. Rupa Tinajero RDN, [facility] Certified Diabetes Care and Sanitation Inspector P: [phone] Thank you for this referral
== END ==
LOC: DIET 14:25
PROVIDERS: Family Provider Internal Medicine; PCP Internal Medicine; Referring Provider Internal Medicine
DX: E11.42 Type 2 diabetes mellitus with diabetic polyneuropathy (principal); Z71.3 Dietary counseling and surveillance; Z79.4 Long term (current) use of insulin
CPT/HCPCS: 97803

== ENCOUNTER 2024-07-10 17:00 | Outpatient (RCR) | payer MEDICARE, MEDICAID, SELFPAY ==
--- NOTE | 2024-06-11 15:15 | PT.OIE ---
Current Diagnoses Other chronic pain (06/11/24) Pain in left knee (06/11/24) Other specified disorders of tendon, left shoulder (06/11/24) Past Medical History (Last Reviewed 05/09/24 @ 12:57 by Shukri Marroquin MD) Mixed hyperlipidemia Pain of upper abdomen Tendinosis of left rotator cuff Type 2 diabetes mellitus with polyneuropathy Visit Care Team Role Provider Type Shukri Marroquin MD Attending Provider Physician Family Provider Primary Care Provider Referring Provider Specialty: Internal Medicine Address: [address] [place] [address], [facility] Email: [email or web address] Physical Therapy Initial Evaluation PT-OP-A Visit Information Start: 06/10/24 16:00 Freq: Status: Active Protocol: Document 06/11/24 14:30 DCW (Rec: 06/11/24 16:14 DCW [id number]) Out-Patient Physical Therapy Visit Information Visit Information Visit Type Initial Evaluation Visit Note Pt predominately speaks Honduran, used carbide operator phone throughout session Visit Start Time 14:30 Visit Stop Time 15:15 Visit Number 1 Number of REFUELING RAMP ATTENDANT Visits 0 Evaluation Information Evaluation Date 06/11/24 PT-OP-B Current Condition Start: 06/10/24 16:00 Freq: Status: Active Protocol: Document 06/11/24 14:30 DCW (Rec: 06/13/24 10:43 DCW [id number]) Current Condition History of Current Condition Onset Date One year history Current Complaints Left shoulder pain and stiffness History of Current Condition Pt is a 69 year old male presenting to skilled therapy with a one year history of pain and stiffness in his left shoulder. Reports there was no specific injury, just years of general difficult work has resulted in arthritis. Reports he is unable to lift his arm overhead, has difficult doffing his jacket, washing his hair, and it disturbs his sleep. At the time of eval, pt additionally noted that he has occasional numbness in his left hand. Also has some arthritis in his knees, bothers him when he walks 4-5 miles, but he only recently moved to the area from [place], and is not currently working, so his knees haven't been bothering him as much, and he's much more concerned about his shoulder. PT-OP-C Subjective Start: 06/10/24 16:00 Freq: Status: Active Protocol: Document 06/11/24 14:30 DCW (Rec: 06/11/24 16:14 DCW [id number]) OP-PT Subjective Patient Comments Patient Comments Everything I did when I was young just got into my bones, and I'm paying for it now. PT-OP-F Manual Assessment Start: 06/10/24 16:00 Freq: Status: Active Protocol: Document 06/11/24 14:30 DCW (Rec: 06/11/24 16:45 DCW [id number]) Manual Assessments Soft Tissue Assessment Soft Tissue Mobility Assessment Left r/c atrophy, especially infraspinatus Joint Mobility Assessment Joint Mobility Assessment Limited passive ROM of left shoulder, severe stiffness in GH and A/C PT-OP-K Range of Motion Start: 06/10/24 16:00 Freq: Status: Active Protocol: Document 06/11/24 14:30 DCW (Rec: 06/13/24 09:42 DCW [id number]) Shoulder Goniometric Range of Motion Shoulder Right Active Testing Position Sitting Flexion 145 Abduction 166 External Rotation at 0 degrees Abduction 65 Internal Rotation Behind Back (text) T10 Left Active Shoulder ROM WFL No Testing Position Sitting Flexion 62 Abduction 41 External Rotation at 0 degrees Abduction 0 Internal Rotation Behind Back (text) L PSIS PT-OP-L Special Tests Start: 06/11/24 16:08 Freq: Status: Active Protocol: Document 06/11/24 14:30 DCW (Rec: 06/11/24 16:14 DCW [id number]) Special Tests Shoulder Special Tests Passive ER Rotator Cuff Test Results Positive Left Lift-Off Rotator Cuff Test Results Unable to position Belly Press Test Results I can't really push, it's very weak AC Joint Compression Test Results Positive Left PT-OP-M Strength Start: 06/10/24 16:00 Freq: Status: Active Protocol: Document 06/11/24 14:30 DCW (Rec: 06/11/24 16:14 DCW [id number]) Shoulder Strength Shoulder Manual Muscle Testing Right Flexion 4 Good Abduction (C5) 4 Good External Rotation 4 Good Internal Rotation 4 Good Left Flexion 2+ Poor+ Abduction (C5) 3- Fair- External Rotation 2 Poor Internal Rotation 2+ Poor+ Hand Gravity Manager/Pinch Strength Hand Dominance Hand Dominance Right Hand Strength Right Gravity Manager (lbs) 56.7 Comments Three-trial Average: 60, 60, 50 Left Gravity Manager (lbs) 40.0 Comments Three-trial Average: 40, 40, 40 PT-OP-Q Treatments Start: 06/10/24 16:00 Freq: Status: Active Protocol: Document 06/11/24 14:30 DCW (Rec: 06/11/24 16:14 DCW [id number]) Therapeutic Exercises Sitting Exercises Rows Sitting Exercise Name Rows Side bilateral Resistance Lv 2 External Rotation Sitting Exercise Name External Rotation Side bilateral Resistance Lv 2 PT-OP-T Assessment and Plan Start: 06/10/24 16:00 Freq: Status: Active Protocol: Document 06/11/24 14:30 DCW (Rec: 06/13/24 11:24 DCW [id number]) Physical Therapy Assessment Rehab Potential Rehabilitation Potential Fair Evaluation Complexity Number of Personal Factors/Comorbidities 3 or More Number of Body Systems Impaired 4 or More Clinical Presentation at Evaluation Unstable Impairments Impairments Activity Tolerance,Functional Activities,Functional Mobility ,Pain,ROM,Strength,Tone Goals Three Impairment Pt reports should pain disturbs sleep Mcc Goal (LTG) Pt to report sleeping through the night without pain waking him up for four out of seven nights per week. LTG Duration 08/11/24 Two Impairment Pt unable to lift his left arm overhead Sfdc Consultant Goal (LTG) Pt to improve his left shoulder flexion and extension to >120? in order to improve ability to lift objects onto overhead shelving LTG Duration 08/11/24 One Impairment Pt does not have an appropriate home exercise program Short Term Goal (STG) Pt to be independent and compliant with an appropriate HEP STG Duration 07/12/24 Assessment Summary Assessment Pt presents with signs and symptoms consistent with referring diagnosis. Pt's left shoulder is extremely limited with functional mobility and ROM, indicates signs of both degenerative changes without the GH joint, as well as musculature dysfunction and atrophy which may be suggestive of rotator cuff damage, most likely involvement of the subscapularis. Pt may benefit from skilled therapy focusing on stretching/flexibility for ROM, shoulder strengthening, improving activity tolerance, pain control, STM/joint mobilizations, and manual treatment in order to improve functional mobility. Physical Therapy Plan Frequency and Duration Frequency of Treatment 2x/Week Plan of Care Start Date 06/11/24 Plan of Care End Date 08/11/24 Therapeutic Interventions Therapeutic Interventions Home Exercise Program,Joint Mobilizations,Manual Therapy, Neuromuscular Re-education, Patient/Caregiver Education, Self-Care/Home Management,Soft Tissue Mobilization,Taping, Therapeutic Activities, Therapeutic Exercises, Vestibular Rehabilitation Modalities Cold Pack/Ice Massage,Hot Packs Next Visit Focus/Plan Next Note Type Treatment Note Next Visit Plan Shoulder strengthening, posture training, STM, joint mobs
--- NOTE | 2024-06-11 15:15 | PT.OPPOC ---
Physical, Occupational & Speech Therapy At [facility] Current Diagnoses Other chronic pain (06/11/24) Pain in left knee (06/11/24) Other specified disorders of tendon, left shoulder (06/11/24) Visit Care Team Role Provider Type Shukri Marroquin MD Attending Provider Physician Family Provider Primary Care Provider Referring Provider Specialty: Internal Medicine Address: [address] [place] [address], [facility] Email: [email or web address] Plan Of Care PT-OP-B Current Condition Start: 06/10/24 16:00 Freq: Status: Active Protocol: Document 06/11/24 14:30 DCW (Rec: 06/13/24 10:43 DCW [id number]) Current Condition History of Current Condition Onset Date One year history Current Complaints Left shoulder pain and stiffness History of Current Condition Pt is a 69 year old male presenting to skilled therapy with a one year history of pain and stiffness in his left shoulder. Reports there was no specific injury, just years of general difficult work has resulted in arthritis. Reports he is unable to lift his arm overhead, has difficult doffing his jacket, washing his hair, and it disturbs his sleep. At the time of eval, pt additionally noted that he has occasional numbness in his left hand. Also has some arthritis in his knees, bothers him when he walks 4-5 miles, but he only recently moved to the area from [place], and is not currently working, so his knees haven't been bothering him as much, and he's much more concerned about his shoulder. PT-OP-T Assessment and Plan Start: 06/10/24 16:00 Freq: Status: Active Protocol: Document 06/11/24 14:30 DCW (Rec: 06/13/24 11:24 DCW [id number]) Physical Therapy Assessment Rehab Potential Rehabilitation Potential Fair Evaluation Complexity Number of Personal Factors/Comorbidities 3 or More Number of Body Systems Impaired 4 or More Clinical Presentation at Evaluation Unstable Impairments Impairments Activity Tolerance,Functional Activities,Functional Mobility ,Pain,ROM,Strength,Tone Goals Three Impairment Pt reports should pain disturbs sleep Jail Goal (LTG) Pt to report sleeping through the night without pain waking him up for four out of seven nights per week. LTG Duration 08/11/24 Two Impairment Pt unable to lift his left arm overhead Banquet Server Goal (LTG) Pt to improve his left shoulder flexion and extension to >120? in order to improve ability to lift objects onto overhead shelving LTG Duration 08/11/24 One Impairment Pt does not have an appropriate home exercise program Short Term Goal (STG) Pt to be independent and compliant with an appropriate HEP STG Duration 07/12/24 Assessment Summary Assessment Pt presents with signs and symptoms consistent with referring diagnosis. Pt's left shoulder is extremely limited with functional mobility and ROM, indicates signs of both degenerative changes without the GH joint, as well as musculature dysfunction and atrophy which may be suggestive of rotator cuff damage, most likely involvement of the subscapularis. Pt may benefit from skilled therapy focusing on stretching/flexibility for ROM, shoulder strengthening, improving activity tolerance, pain control, STM/joint mobilizations, and manual treatment in order to improve functional mobility. Physical Therapy Plan Frequency and Duration Frequency of Treatment 2x/Week Plan of Care Start Date 06/11/24 Plan of Care End Date 08/11/24 Therapeutic Interventions Therapeutic Interventions Home Exercise Program,Joint Mobilizations,Manual Therapy, Neuromuscular Re-education, Patient/Caregiver Education, Self-Care/Home Management,Soft Tissue Mobilization,Taping, Therapeutic Activities, Therapeutic Exercises, Vestibular Rehabilitation Modalities Cold Pack/Ice Massage,Hot Packs Next Visit Focus/Plan Next Note Type Treatment Note Next Visit Plan Shoulder strengthening, posture training, STM, joint mobs Plan of Care Dates Plan of Care Start Date 06/11/24 Plan of Care End Date 08/11/24 Electronically Signed by: Kings Reyna, PT 06/13/24 1126 If you are in agreement with this Plan of Care, please return a signed and dated copy. I have reviewed this Plan of Care and certify that the skilled therapy services above are required to meet the patient?s needs. Physician Signature Date Printed Name and Credentials Clinical Instructor Signature Printed Name and Credentials
--- NOTE | 2024-06-17 14:48 | PT-OP ANOTE ---
Pt did not show for appt today. CUSTOMER SUPPORT MANAGER called pt's daughter Johanna, she stated didn't keep track of time thus missing 230 appt today. She reported pt also reminded her earlier today of 230 appt to bring him. CUSTOMER SUPPORT MANAGER reminded daughter of pt's next and last scheduled appt at 1430 appt on 06/19 but also saw pt has a physician appt 06/17/24 at 1500 so helped daughter reschedule his appt to see PT on 06/17/24 at 1345 instead to help them get to Dr appt on time. CUSTOMER SUPPORT MANAGER told daughter to be sure to write new time 1345 on their schedule 06/17/24.
--- NOTE | 2024-06-19 14:34 | PT.OTN ---
Current Diagnoses Other chronic pain (06/19/24) Pain in left knee (06/19/24) Other specified disorders of tendon, left shoulder (06/19/24) Physical Therapy Treatment Note PT-OP-A Visit Information Start: 06/10/24 16:00 Freq: Status: Active Protocol: Document 06/19/24 13:45 DCW (Rec: 06/19/24 14:34 DCW [id number]) Out-Patient Physical Therapy Visit Information Visit Information Visit Type Treatment Note Visit Note Pt predominately speaks Pashto, used assembling fabricator phone throughout first half of session. Pt then noted he felt comfortable communicating without assembling fabricator. Visit Start Time 13:45 Visit Stop Time 14:30 Visit Number 2 Number of MODEL ENGINE MECHANIC Visits 0 Evaluation Information Evaluation Date 06/11/24 PT-OP-B Current Condition Start: 06/10/24 16:00 Freq: Status: Active Protocol: Document 06/11/24 14:30 DCW (Rec: 06/13/24 10:43 DCW [id number]) Current Condition History of Current Condition Onset Date One year history Current Complaints Left shoulder pain and stiffness History of Current Condition Pt is a 69 year old male presenting to skilled therapy with a one year history of pain and stiffness in his left shoulder. Reports there was no specific injury, just years of general difficult work has resulted in arthritis. Reports he is unable to lift his arm overhead, has difficult doffing his jacket, washing his hair, and it disturbs his sleep. At the time of eval, pt additionally noted that he has occasional numbness in his left hand. Also has some arthritis in his knees, bothers him when he walks 4-5 miles, but he only recently moved to the area from [place], and is not currently working, so his knees haven't been bothering him as much, and he's much more concerned about his shoulder. PT-OP-C Subjective Start: 06/10/24 16:00 Freq: Status: Active Protocol: Document 06/19/24 13:45 DCW (Rec: 06/19/24 14:34 DCW [id number]) OP-PT Subjective Patient Comments Patient Comments Pt denies increased pain following his initial evaluation. Notes he has done his HEP a little bit. PT-OP-F Manual Assessment Start: 06/10/24 16:00 Freq: Status: Active Protocol: Document 06/11/24 14:30 DCW (Rec: 06/11/24 16:45 DCW [id number]) Manual Assessments Soft Tissue Assessment Soft Tissue Mobility Assessment Left r/c atrophy, especially infraspinatus Joint Mobility Assessment Joint Mobility Assessment Limited passive ROM of left shoulder, severe stiffness in GH and A/C PT-OP-K Range of Motion Start: 06/10/24 16:00 Freq: Status: Active Protocol: Document 06/11/24 14:30 DCW (Rec: 06/13/24 09:42 DCW [id number]) Shoulder Goniometric Range of Motion Shoulder Right Active Testing Position Sitting Flexion 145 Abduction 166 External Rotation at 0 degrees Abduction 65 Internal Rotation Behind Back (text) T10 Left Active Shoulder ROM WFL No Testing Position Sitting Flexion 62 Abduction 41 External Rotation at 0 degrees Abduction 0 Internal Rotation Behind Back (text) L PSIS PT-OP-L Special Tests Start: 06/11/24 16:08 Freq: Status: Active Protocol: Document 06/11/24 14:30 DCW (Rec: 06/11/24 16:14 DCW [id number]) Special Tests Shoulder Special Tests Passive ER Rotator Cuff Test Results Positive Left Lift-Off Rotator Cuff Test Results Unable to position Belly Press Test Results I can't really push, it's very weak AC Joint Compression Test Results Positive Left PT-OP-M Strength Start: 06/10/24 16:00 Freq: Status: Active Protocol: Document 06/11/24 14:30 DCW (Rec: 06/11/24 16:14 DCW [id number]) Shoulder Strength Shoulder Manual Muscle Testing Right Flexion 4 Good Abduction (C5) 4 Good External Rotation 4 Good Internal Rotation 4 Good Left Flexion 2+ Poor+ Abduction (C5) 3- Fair- External Rotation 2 Poor Internal Rotation 2+ Poor+ Hand Gravel Screener/Pinch Strength Hand Dominance Hand Dominance Right Hand Strength Right Gravel Screener (lbs) 56.7 Comments Three-trial Average: 60, 60, 50 Left Gravel Screener (lbs) 40.0 Comments Three-trial Average: 40, 40, 40 PT-OP-Q Treatments Start: 06/10/24 16:00 Freq: Status: Active Protocol: Document 06/19/24 13:45 DCW (Rec: 06/19/24 14:34 DCW [id number]) Cardio Equipment Upper Body Ergometer (UBE) Duration (Minutes) 4 RPM 60 Seat Position 13 Height 2 Therapeutic Exercises Supine Exercises Serratus Punch Supine Exercise Name Serratus Punch /c PVC Side bilateral Comments Stopped d/t pain Shoulder Flexion Supine Exercise Name Shoulder Flexion /c PVC Side bilateral Sitting Exercises Pulleys Sitting Exercise Name Pulleys - Flexion, Abduction Side bilateral Standing Exercises Flexion Standing Exercise Name Shoulder Flexion Side bilateral Resistance 3# Abduction Standing Exercise Name Shoulder Abduction Side bilateral Resistance 3# Rows Standing Exercise Name Rows Side bilateral Adduction Standing Exercise Name Shoulder Adduction Side bilateral Extension Standing Exercise Name Shoulder Extension Side bilateral PT-OP-T Assessment and Plan Start: 06/10/24 16:00 Freq: Status: Active Protocol: Document 06/19/24 13:45 DCW (Rec: 06/19/24 14:34 DCW [id number]) Physical Therapy Assessment Impairments Impairments Activity Tolerance,Functional Activities,Functional Mobility ,Pain,ROM,Strength,Tone Goals Three Impairment Pt reports should pain disturbs sleep Fdc Goal (LTG) Pt to report sleeping through the night without pain waking him up for four out of seven nights per week. LTG Duration 08/11/24 Two Impairment Pt unable to lift his left arm overhead Fdc Goal (LTG) Pt to improve his left shoulder flexion and extension to >120? in order to improve ability to lift objects onto overhead shelving LTG Duration 08/11/24 One Impairment Pt does not have an appropriate home exercise program Short Term Goal (STG) Pt to be independent and compliant with an appropriate HEP STG Duration 07/12/24 Assessment Summary Assessment Pt tolerated well, noted just getting his shoulder moving felt good. Continue to focus on shoulder strengthening and mobility. Physical Therapy Plan Frequency and Duration Frequency of Treatment 2x/Week Plan of Care Start Date 06/11/24 Plan of Care End Date 08/11/24 Therapeutic Interventions Therapeutic Interventions Home Exercise Program,Joint Mobilizations,Manual Therapy, Neuromuscular Re-education, Patient/Caregiver Education, Self-Care/Home Management,Soft Tissue Mobilization,Taping, Therapeutic Activities, Therapeutic Exercises, Vestibular Rehabilitation Modalities Cold Pack/Ice Massage,Hot Packs Next Visit Focus/Plan Next Note Type Treatment Note Next Visit Plan Shoulder strengthening, posture training, STM, joint mobs
--- NOTE | 2024-06-25 10:29 | PT.OTN ---
Current Diagnoses Other chronic pain (06/25/24) Pain in left knee (06/25/24) Other specified disorders of tendon, left shoulder (06/25/24) Physical Therapy Treatment Note PT-OP-A Visit Information Start: 06/10/24 16:00 Freq: Status: Active Protocol: Document 06/25/24 09:47 MB (Rec: 06/25/24 10:26 MB [id number]) Out-Patient Physical Therapy Visit Information Visit Information Visit Type Treatment Note Visit Note Water Control Supervisor number [id number] Visit Start Time 09:47 Visit Stop Time 10:27 Visit Number 2 Number of SEISMIC ENGINEER Visits 0 Evaluation Information Evaluation Date 06/11/24 Precautions Precautions Pt denies allergies to metal and latex, he denies blood thinner medication, he takes diabetic medication PT-OP-B Current Condition Start: 06/10/24 16:00 Freq: Status: Active Protocol: Document 06/11/24 14:30 DCW (Rec: 06/13/24 10:43 DCW [id number]) Current Condition History of Current Condition Onset Date One year history Current Complaints Left shoulder pain and stiffness History of Current Condition Pt is a 69 year old male presenting to skilled therapy with a one year history of pain and stiffness in his left shoulder. Reports there was no specific injury, just years of general difficult work has resulted in arthritis. Reports he is unable to lift his arm overhead, has difficult doffing his jacket, washing his hair, and it disturbs his sleep. At the time of eval, pt additionally noted that he has occasional numbness in his left hand. Also has some arthritis in his knees, bothers him when he walks 4-5 miles, but he only recently moved to the area from [place], and is not currently working, so his knees haven't been bothering him as much, and he's much more concerned about his shoulder. PT-OP-C Subjective Start: 06/10/24 16:00 Freq: Status: Active Protocol: Document 06/25/24 09:47 MB (Rec: 06/25/24 10:26 MB [id number]) OP-PT Subjective Patient Comments Patient Comments Pt states that he is doing his exercises and they are going okay. Pt has pain sleeping and he has to sleep on his back d /t left shoulder pain. He can sleep about 6-7 hours. He is not using ice or heat. PT-OP-F Manual Assessment Start: 06/10/24 16:00 Freq: Status: Active Protocol: Document 06/11/24 14:30 DCW (Rec: 06/11/24 16:45 DCW [id number]) Manual Assessments Soft Tissue Assessment Soft Tissue Mobility Assessment Left r/c atrophy, especially infraspinatus Joint Mobility Assessment Joint Mobility Assessment Limited passive ROM of left shoulder, severe stiffness in GH and A/C PT-OP-K Range of Motion Start: 06/10/24 16:00 Freq: Status: Active Protocol: Document 06/11/24 14:30 DCW (Rec: 06/13/24 09:42 DCW [id number]) Shoulder Goniometric Range of Motion Shoulder Right Active Testing Position Sitting Flexion 145 Abduction 166 External Rotation at 0 degrees Abduction 65 Internal Rotation Behind Back (text) T10 Left Active Shoulder ROM WFL No Testing Position Sitting Flexion 62 Abduction 41 External Rotation at 0 degrees Abduction 0 Internal Rotation Behind Back (text) L PSIS PT-OP-L Special Tests Start: 06/11/24 16:08 Freq: Status: Active Protocol: Document 06/11/24 14:30 DCW (Rec: 06/11/24 16:14 DCW [id number]) Special Tests Shoulder Special Tests Passive ER Rotator Cuff Test Results Positive Left Lift-Off Rotator Cuff Test Results Unable to position Belly Press Test Results I can't really push, it's very weak AC Joint Compression Test Results Positive Left PT-OP-M Strength Start: 06/10/24 16:00 Freq: Status: Active Protocol: Document 06/11/24 14:30 DCW (Rec: 06/11/24 16:14 DCW [id number]) Shoulder Strength Shoulder Manual Muscle Testing Right Flexion 4 Good Abduction (C5) 4 Good External Rotation 4 Good Internal Rotation 4 Good Left Flexion 2+ Poor+ Abduction (C5) 3- Fair- External Rotation 2 Poor Internal Rotation 2+ Poor+ Hand [employer]/Pinch Strength Hand Dominance Hand Dominance Right Hand Strength Right [employer] (lbs) 56.7 Comments Three-trial Average: 60, 60, 50 Left [employer] (lbs) 40.0 Comments Three-trial Average: 40, 40, 40 PT-OP-Q Treatments Start: 06/10/24 16:00 Freq: Status: Active Protocol: Document 06/25/24 09:47 MB (Rec: 06/25/24 10:26 MB [id number]) Therapeutic Exercises Supine Exercises Pect stretch Supine Exercise Name Tried in supine and pt cannot tolerate d/t shoulder restrictions Manual Therapy Treatment Consent Patient gave verbal consent for manual Yes treatment Other Other Manual Treatments Pt supine with head and legs supported: cervical PA mobs grade I-II in supine with increased tension in C7, STM B pect majors, upper traps, cervical paraspinals, much more tension in left pect major and minor Self-Care/Home Management Treatment Education Patient Education Body Mechanics,Home Exercise Program,Joint Protection,Pain Management,Posture Other Education Ed pt in benefits of frozen peas or corn for 8 minutes to help with shoulder pain, cannot tolerate pect stretch, ed in TrP treatment benefits and pt is reluctant and deferred today, ed pt on benefits of arm swinging with walking PT-OP-T Assessment and Plan Start: 06/10/24 16:00 Freq: Status: Active Protocol: Document 06/25/24 09:47 MB (Rec: 06/25/24 10:26 MB [id number]) Physical Therapy Assessment Rehab Potential Rehabilitation Potential Fair Evaluation Complexity Number of Personal Factors/Comorbidities 3 or More Number of Body Systems Impaired 4 or More Clinical Presentation at Evaluation Unstable Impairments Impairments Activity Tolerance,Functional Activities,Functional Mobility ,Pain,ROM,Strength,Tone Goals Three Impairment Pt reports should pain disturbs sleep Penitentiary Goal (LTG) Pt to report sleeping through the night without pain waking him up for four out of seven nights per week. LTG Duration 08/11/24 Two Impairment Pt unable to lift his left arm overhead Laborer Landscape Goal (LTG) Pt to improve his left shoulder flexion and extension to >120? in order to improve ability to lift objects onto overhead shelving LTG Duration 08/11/24 One Impairment Pt does not have an appropriate home exercise program Short Term Goal (STG) Pt to be independent and compliant with an appropriate HEP STG Duration 07/12/24 Assessment Summary Assessment Left shoulder has bony end- feel with attempted pect stretch today and it does appear severely degenerated. Pt cannot tolerate pect stretch. Manual work to improve myofascia, neck and ribs. Pt may benefit from orthopedist assessment for possible diagnostics/ injections. Physical Therapy Plan Frequency and Duration Frequency of Treatment 2x/Week Plan of Care Start Date 06/11/24 Plan of Care End Date 08/11/24 Therapeutic Interventions Therapeutic Interventions Home Exercise Program,Joint Mobilizations,Manual Therapy, Neuromuscular Re-education, Patient/Caregiver Education, Self-Care/Home Management,Soft Tissue Mobilization,Taping, Therapeutic Activities, Therapeutic Exercises, Vestibular Rehabilitation Modalities Cold Pack/Ice Massage,Hot Packs Other Referrals/Consults Referrals/Consults Recommended Orthopedic consult for diagnostics, possible injection if deemed appropriate by doctor Next Visit Focus/Plan Next Note Type Treatment Note Next Visit Plan From plan: review execises as needed (consider scap retraction and chin tuck, unsure if arm bike is appropriate) and ongoing shoulder strengthening, posture training, STM, joint mobs
--- NOTE | 2024-07-05 17:07 | PT.OTN ---
Current Diagnoses Other chronic pain (07/05/24) Pain in left knee (07/05/24) Other specified disorders of tendon, left shoulder (07/05/24) Physical Therapy Treatment Note PT-OP-A Visit Information Start: 06/10/24 16:00 Freq: Status: Active Protocol: Document 07/05/24 15:10 AB (Rec: 07/05/24 17:07 AB [id number]) Out-Patient Physical Therapy Visit Information Visit Information Visit Type Treatment Note Visit Note declines entry level Visit Start Time 16:12 Visit Stop Time 16:56 Visit Number 4 Number of PULLER THROUGH Visits 1 Evaluation Information Evaluation Date 06/11/24 Precautions Precautions Pt denies allergies to metal and latex, he denies blood thinner medication, he takes diabetic medication PT-OP-B Current Condition Start: 06/10/24 16:00 Freq: Status: Active Protocol: Document 06/11/24 14:30 DCW (Rec: 06/13/24 10:43 DCW [id number]) Current Condition History of Current Condition Onset Date One year history Current Complaints Left shoulder pain and stiffness History of Current Condition Pt is a 69 year old male presenting to skilled therapy with a one year history of pain and stiffness in his left shoulder. Reports there was no specific injury, just years of general difficult work has resulted in arthritis. Reports he is unable to lift his arm overhead, has difficult doffing his jacket, washing his hair, and it disturbs his sleep. At the time of eval, pt additionally noted that he has occasional numbness in his left hand. Also has some arthritis in his knees, bothers him when he walks 4-5 miles, but he only recently moved to the area from [place], and is not currently working, so his knees haven't been bothering him as much, and he's much more concerned about his shoulder. PT-OP-C Subjective Start: 06/10/24 16:00 Freq: Status: Active Protocol: Document 07/05/24 15:10 AB (Rec: 07/05/24 17:07 AB [id number]) OP-PT Subjective Patient Comments Patient Comments Patient reports his arm is moving better, is doing the exercises. Patient reports having no pain start of session, reports it hurts when he sleeps. AROM left shoulder flexion 85 deg with inc UT activation PT-OP-F Manual Assessment Start: 06/10/24 16:00 Freq: Status: Active Protocol: Document 06/11/24 14:30 DCW (Rec: 06/11/24 16:45 DCW [id number]) Manual Assessments Soft Tissue Assessment Soft Tissue Mobility Assessment Left r/c atrophy, especially infraspinatus Joint Mobility Assessment Joint Mobility Assessment Limited passive ROM of left shoulder, severe stiffness in GH and A/C PT-OP-K Range of Motion Start: 06/10/24 16:00 Freq: Status: Active Protocol: Document 06/11/24 14:30 DCW (Rec: 06/13/24 09:42 DCW [id number]) Shoulder Goniometric Range of Motion Shoulder Right Active Testing Position Sitting Flexion 145 Abduction 166 External Rotation at 0 degrees Abduction 65 Internal Rotation Behind Back (text) T10 Left Active Shoulder ROM WFL No Testing Position Sitting Flexion 62 Abduction 41 External Rotation at 0 degrees Abduction 0 Internal Rotation Behind Back (text) L PSIS PT-OP-L Special Tests Start: 06/11/24 16:08 Freq: Status: Active Protocol: Document 06/11/24 14:30 DCW (Rec: 06/11/24 16:14 DCW [id number]) Special Tests Shoulder Special Tests Passive ER Rotator Cuff Test Results Positive Left Lift-Off Rotator Cuff Test Results Unable to position Belly Press Test Results I can't really push, it's very weak AC Joint Compression Test Results Positive Left PT-OP-M Strength Start: 06/10/24 16:00 Freq: Status: Active Protocol: Document 06/11/24 14:30 DCW (Rec: 06/11/24 16:14 DCW [id number]) Shoulder Strength Shoulder Manual Muscle Testing Right Flexion 4 Good Abduction (C5) 4 Good External Rotation 4 Good Internal Rotation 4 Good Left Flexion 2+ Poor+ Abduction (C5) 3- Fair- External Rotation 2 Poor Internal Rotation 2+ Poor+ Hand Aircraft Electronics Technical Officer/Pinch Strength Hand Dominance Hand Dominance Right Hand Strength Right Aircraft Electronics Technical Officer (lbs) 56.7 Comments Three-trial Average: 60, 60, 50 Left Aircraft Electronics Technical Officer (lbs) 40.0 Comments Three-trial Average: 40, 40, 40 PT-OP-Q Treatments Start: 06/10/24 16:00 Freq: Status: Active Protocol: Document 07/05/24 15:10 AB (Rec: 07/05/24 17:07 AB [id number]) Therapeutic Exercises Supine Exercises pec str Supine Exercise Name on pool noodle Side bilateral Reps/Minutes 3 min Comments verbal cues Shoulder Flexion Supine Exercise Name Alt UE flexion on pool noodle Side bilateral Reps/Minutes X10 Comments verbal and visual cues Sidelying Exercises shoulder ER Sidelying Exercise Name AROM Side left Reps/Minutes X10 Comments verbal and tactile cues Sitting Exercises Pulleys Sitting Exercise Name Pulleys - Flexion, Abduction Side bilateral Reps/Minutes 2 min each Comments Visual cues for movement, verbal cues to perform to antwan External Rotation Sitting Exercise Name External Rotation 1. PROM body over UE 2. AROM Side left Equipment Used HEP Reps/Minutes 1. X 5 VC for 10 sec hold 2. X 10 Comments Verbal and visual cues Standing Exercises L stretch Standing Exercise Name HEP Reps/Minutes X10 Comments verbal and visual cues Rows Standing Exercise Name Rows Side bilateral Resistance level one latex free Reps/Minutes X 2 not antwan Manual Therapy Treatment Soft Tissue Mobilization Pec, post cuff, periscap Body Location L shoulder Mobilization Type Cross-Friction,Rolling, Sustained Pressure Intensity/Depth Moderate Body Position Hooklying Comments and sidelying Joint Mobilizations L shoulder Joint 1. GH 2. scapula Direction AP and inf 2. into add and dep Grade IV Body Position 1. 4X 10 2 Comments Monitored for pain PT-OP-T Assessment and Plan Start: 06/10/24 16:00 Freq: Status: Active Protocol: Document 07/05/24 15:10 AB (Rec: 07/05/24 17:07 [id number]) Physical Therapy Assessment Goals Three Impairment Pt reports should pain disturbs sleep Automatic Corn Grinder Operator Goal (LTG) Pt to report sleeping through the night without pain waking him up for four out of seven nights per week. LTG Duration 08/11/24 Two Impairment Pt unable to lift his left arm overhead Automatic Corn Grinder Operator Goal (LTG) Pt to improve his left shoulder flexion and extension to >120? in order to improve ability to lift objects onto overhead shelving LTG Duration 08/11/24 One Impairment Pt does not have an appropriate home exercise program Short Term Goal (STG) Pt to be independent and compliant with an appropriate HEP STG Duration 07/12/24 Assessment Summary Assessment Left shoulder AROM 92 deg flexion end of session, reports a little pain end of session, comments it is no big deal. ( 112 deg flexion AROM left shoulder in hooklying) Physical Therapy Plan Frequency and Duration Frequency of Treatment 2x/Week Plan of Care Start Date 06/11/24 Plan of Care End Date 08/11/24 Therapeutic Interventions Therapeutic Interventions Home Exercise Program,Joint Mobilizations,Manual Therapy, Neuromuscular Re-education, Patient/Caregiver Education, Self-Care/Home Management,Soft Tissue Mobilization,Taping, Therapeutic Activities, Therapeutic Exercises, Vestibular Rehabilitation Modalities Cold Pack/Ice Massage,Hot Packs Next Visit Focus/Plan Next Note Type Treatment Note Next Visit Plan From plan: review execises as needed (consider scap retraction and chin tuck, unsure if arm bike is appropriate) and ongoing shoulder strengthening, posture training, STM, joint mobs
--- NOTE | 2024-07-10 17:47 | PT.OTN ---
Current Diagnoses Other chronic pain (07/10/24) Pain in left knee (07/10/24) Other specified disorders of tendon, left shoulder (07/10/24) Physical Therapy Treatment Note PT-OP-A Visit Information Start: 06/10/24 16:00 Freq: Status: Active Protocol: Document 07/10/24 17:00 DCW (Rec: 07/10/24 17:47 DCW [id number]) Out-Patient Physical Therapy Visit Information Visit Information Visit Type Treatment Note Visit Note declines stand in Visit Start Time 17:00 Visit Stop Time 17:45 Visit Number 5 Number of CORPORATE STRATEGY ASSOCIATE Visits 0 Evaluation Information Evaluation Date 06/11/24 Precautions Precautions Pt denies allergies to metal and latex, he denies blood thinner medication, he takes diabetic medication PT-OP-B Current Condition Start: 06/10/24 16:00 Freq: Status: Active Protocol: Document 06/11/24 14:30 DCW (Rec: 06/13/24 10:43 DCW [id number]) Current Condition History of Current Condition Onset Date One year history Current Complaints Left shoulder pain and stiffness History of Current Condition Pt is a 69 year old male presenting to skilled therapy with a one year history of pain and stiffness in his left shoulder. Reports there was no specific injury, just years of general difficult work has resulted in arthritis. Reports he is unable to lift his arm overhead, has difficult doffing his jacket, washing his hair, and it disturbs his sleep. At the time of eval, pt additionally noted that he has occasional numbness in his left hand. Also has some arthritis in his knees, bothers him when he walks 4-5 miles, but he only recently moved to the area from [place], and is not currently working, so his knees haven't been bothering him as much, and he's much more concerned about his shoulder. PT-OP-C Subjective Start: 06/10/24 16:00 Freq: Status: Active Protocol: Document 07/10/24 17:00 DCW (Rec: 07/10/24 17:47 DCW [id number]) OP-PT Subjective Patient Comments Patient Comments Pt reports shoulder is feeling a little better, mobility has improved slightly. Continues to experience increased pain at night, but not all the time . PT-OP-F Manual Assessment Start: 06/10/24 16:00 Freq: Status: Active Protocol: Document 06/11/24 14:30 DCW (Rec: 06/11/24 16:45 DCW [id number]) Manual Assessments Soft Tissue Assessment Soft Tissue Mobility Assessment Left r/c atrophy, especially infraspinatus Joint Mobility Assessment Joint Mobility Assessment Limited passive ROM of left shoulder, severe stiffness in GH and A/C PT-OP-K Range of Motion Start: 06/10/24 16:00 Freq: Status: Active Protocol: Document 06/11/24 14:30 DCW (Rec: 06/13/24 09:42 DCW [id number]) Shoulder Goniometric Range of Motion Shoulder Right Active Testing Position Sitting Flexion 145 Abduction 166 External Rotation at 0 degrees Abduction 65 Internal Rotation Behind Back (text) T10 Left Active Shoulder ROM WFL No Testing Position Sitting Flexion 62 Abduction 41 External Rotation at 0 degrees Abduction 0 Internal Rotation Behind Back (text) L PSIS PT-OP-L Special Tests Start: 06/11/24 16:08 Freq: Status: Active Protocol: Document 06/11/24 14:30 DCW (Rec: 06/11/24 16:14 DCW [id number]) Special Tests Shoulder Special Tests Passive ER Rotator Cuff Test Results Positive Left Lift-Off Rotator Cuff Test Results Unable to position Belly Press Test Results I can't really push, it's very weak AC Joint Compression Test Results Positive Left PT-OP-M Strength Start: 06/10/24 16:00 Freq: Status: Active Protocol: Document 06/11/24 14:30 DCW (Rec: 06/11/24 16:14 DCW [id number]) Shoulder Strength Shoulder Manual Muscle Testing Right Flexion 4 Good Abduction (C5) 4 Good External Rotation 4 Good Internal Rotation 4 Good Left Flexion 2+ Poor+ Abduction (C5) 3- Fair- External Rotation 2 Poor Internal Rotation 2+ Poor+ Hand Ladle Puller/Pinch Strength Hand Dominance Hand Dominance Right Hand Strength Right Ladle Puller (lbs) 56.7 Comments Three-trial Average: 60, 60, 50 Left Ladle Puller (lbs) 40.0 Comments Three-trial Average: 40, 40, 40 PT-OP-Q Treatments Start: 06/10/24 16:00 Freq: Status: Active Protocol: Document 07/10/24 17:00 DCW (Rec: 07/10/24 17:47 DCW [id number]) Therapeutic Exercises Supine Exercises Shoulder Flexion Supine Exercise Name Supine flexion /c PVC Side bilateral Prone Exercises Rows Prone Exercise Name Prone Rows Side left Resistance 3# I's, Y's, T's Prone Exercise Name I's, Y's, T's Side left Resistance 3# Sidelying Exercises Abduction Sidelying Exercise Name Shoulder Abduction Side left Resistance 3# shoulder ER Sidelying Exercise Name AROM Side left Resistance 3# Sitting Exercises Pulleys Sitting Exercise Name Pulleys - Flexion, Abduction Side bilateral Reps/Minutes 2 min each Comments Visual cues for movement, verbal cues to perform to antwan Standing Exercises Flexion Standing Exercise Name Shoulder Flexion Side bilateral Resistance 3# Abduction Standing Exercise Name Shoulder Abduction Side bilateral Resistance 3# Adduction Standing Exercise Name Shoulder Adduction Side bilateral Resistance Green Extension Standing Exercise Name Shoulder Extension Side bilateral Resistance Green Manual Therapy Treatment Consent Patient gave verbal consent for manual Yes treatment Soft Tissue Mobilization Pec, post cuff, periscap Body Location L shoulder Mobilization Type Cross-Friction,Rolling, Sustained Pressure Intensity/Depth Moderate Body Position Hooklying Comments and sidelying Joint Mobilizations L shoulder Joint 1. GH 2. scapula Direction AP and inf 2. into add and dep Grade IV Body Position 1. 4X 10 2 Comments Monitored for pain PT-OP-T Assessment and Plan Start: 06/10/24 16:00 Freq: Status: Active Protocol: Document 07/10/24 17:00 DCW (Rec: 07/10/24 17:47 DCW [id number]) Physical Therapy Assessment Impairments Impairments Activity Tolerance,Functional Activities,Functional Mobility ,Pain,ROM,Strength,Tone Goals Three Impairment Pt reports should pain disturbs sleep Senior Care Goal (LTG) Pt to report sleeping through the night without pain waking him up for four out of seven nights per week. LTG Duration 08/11/24 Two Impairment Pt unable to lift his left arm overhead Senior Care Goal (LTG) Pt to improve his left shoulder flexion and extension to >120? in order to improve ability to lift objects onto overhead shelving LTG Duration 08/11/24 One Impairment Pt does not have an appropriate home exercise program Short Term Goal (STG) Pt to be independent and compliant with an appropriate HEP STG Duration 07/12/24 Assessment Summary Assessment Pt tolerated well, felt much better and more mobile following treatment session today. Does continue to exhibit decreased strength in all planes of motion, and fairly significant degenerative changes limits motion. Physical Therapy Plan Frequency and Duration Frequency of Treatment 2x/Week Plan of Care Start Date 06/11/24 Plan of Care End Date 08/11/24 Therapeutic Interventions Therapeutic Interventions Home Exercise Program,Joint Mobilizations,Manual Therapy, Neuromuscular Re-education, Patient/Caregiver Education, Self-Care/Home Management,Soft Tissue Mobilization,Taping, Therapeutic Activities, Therapeutic Exercises, Vestibular Rehabilitation Modalities Cold Pack/Ice Massage,Hot Packs Next Visit Focus/Plan Next Note Type Treatment Note Next Visit Plan From plan: review exercises as needed (consider scap retraction and chin tuck, unsure if arm bike is appropriate) and ongoing shoulder strengthening, posture training, STM, joint mobs
--- NOTE | 2024-07-12 10:05 | PT-OP ANOTE ---
Patient did not show to 07/12/24 appointment. Therapist phoned, left voicemail about missed appointment, as well as reminder regarding time of next scheduled visit.
--- NOTE | 2024-07-15 14:00 | PT-OP ANOTE ---
Pt no showed once again to an appointment on 07/15/24. Therapist left a voice message stating that he had no-showed to three visits, and his remaining appointments would need to be canceled. Pt informed that he will need a new referral in order to return in the future.
--- NOTE | 2024-07-15 14:03 | PT.OPDS ---
Current Diagnoses Other chronic pain (07/10/24) Pain in left knee (07/10/24) Other specified disorders of tendon, left shoulder (07/10/24) Visit Care Team Role Provider Type Shukri Marroquin MD Attending Provider Physician Family Provider Primary Care Provider Referring Provider Specialty: Internal Medicine Address: [address] [place] [address], [id number] Email: [email or web address] Visit Number Visit Number 5 Discharge Summary PT-OP-B Current Condition Start: 06/10/24 16:00 Freq: Status: Active Protocol: Document 06/11/24 14:30 DCW (Rec: 06/13/24 10:43 DCW [id number]) Current Condition History of Current Condition Onset Date One year history Current Complaints Left shoulder pain and stiffness History of Current Condition Pt is a 69 year old male presenting to skilled therapy with a one year history of pain and stiffness in his left shoulder. Reports there was no specific injury, just years of general difficult work has resulted in arthritis. Reports he is unable to lift his arm overhead, has difficult doffing his jacket, washing his hair, and it disturbs his sleep. At the time of eval, pt additionally noted that he has occasional numbness in his left hand. Also has some arthritis in his knees, bothers him when he walks 4-5 miles, but he only recently moved to the area from [place], and is not currently working, so his knees haven't been bothering him as much, and he's much more concerned about his shoulder. PT-OP-C Subjective Start: 06/10/24 16:00 Freq: Status: Active Protocol: Document 07/10/24 17:00 DCW (Rec: 07/10/24 17:47 DCW [id number]) OP-PT Subjective Patient Comments Patient Comments Pt reports shoulder is feeling a little better, mobility has improved slightly. Continues to experience increased pain at night, but not all the time . PT-OP-F Manual Assessment Start: 06/10/24 16:00 Freq: Status: Active Protocol: Document 06/11/24 14:30 DCW (Rec: 06/11/24 16:45 DCW [id number]) Manual Assessments Soft Tissue Assessment Soft Tissue Mobility Assessment Left r/c atrophy, especially infraspinatus Joint Mobility Assessment Joint Mobility Assessment Limited passive ROM of left shoulder, severe stiffness in GH and A/C PT-OP-K Range of Motion Start: 06/10/24 16:00 Freq: Status: Active Protocol: Document 06/11/24 14:30 DCW (Rec: 06/13/24 09:42 DCW [id number]) Shoulder Goniometric Range of Motion Shoulder Right Active Testing Position Sitting Flexion 145 Abduction 166 External Rotation at 0 degrees Abduction 65 Internal Rotation Behind Back (text) T10 Left Active Shoulder ROM WFL No Testing Position Sitting Flexion 62 Abduction 41 External Rotation at 0 degrees Abduction 0 Internal Rotation Behind Back (text) L PSIS PT-OP-L Special Tests Start: 06/11/24 16:08 Freq: Status: Active Protocol: Document 06/11/24 14:30 DCW (Rec: 06/11/24 16:14 DCW [id number]) Special Tests Shoulder Special Tests Passive ER Rotator Cuff Test Results Positive Left Lift-Off Rotator Cuff Test Results Unable to position Belly Press Test Results I can't really push, it's very weak AC Joint Compression Test Results Positive Left PT-OP-M Strength Start: 06/10/24 16:00 Freq: Status: Active Protocol: Document 06/11/24 14:30 DCW (Rec: 06/11/24 16:14 DCW [id number]) Shoulder Strength Shoulder Manual Muscle Testing Right Flexion 4 Good Abduction (C5) 4 Good External Rotation 4 Good Internal Rotation 4 Good Left Flexion 2+ Poor+ Abduction (C5) 3- Fair- External Rotation 2 Poor Internal Rotation 2+ Poor+ Hand Nuisance Animal Damage Control Agent/Pinch Strength Hand Dominance Hand Dominance Right Hand Strength Right Nuisance Animal Damage Control Agent (lbs) 56.7 Comments Three-trial Average: 60, 60, 50 Left Nuisance Animal Damage Control Agent (lbs) 40.0 Comments Three-trial Average: 40, 40, 40 PT-OP-T Assessment and Plan Start: 06/10/24 16:00 Freq: Status: Active Protocol: Document 07/15/24 14:01 DCW (Rec: 07/15/24 14:03 DCW [id number]) Physical Therapy Assessment Assessment Summary Assessment Pt to be discharged from skilled therapy due to violation of attendance policy following his third no-show. Message left on his voice mail informing him that he would need a new referral in order to return in the future. Physical Therapy Plan Discharge Physical Therapy Discharge Reasons No Longer Attending PT Next Visit Focus/Plan Next Note Type Discharge Summary
== END 2024-07-17 12:55 | disposition home or self-care (01) ==
LOC: PHYS 17:00
PROVIDERS: Family Provider Internal Medicine; PCP Internal Medicine; Referring Provider Internal Medicine; Visit Provider Internal Medicine
DX: M67.814 Other specified disorders of tendon, left shoulder (principal); M25.562 Pain in left knee; G89.29 Other chronic pain
CPT/HCPCS: 97110; 97140; 97163; 97535

== ENCOUNTER → 2024-07-11 09:18 | Outpatient (CLI) | payer MEDICARE, MEDICAID, SELFPAY ==
[2024-07-11 10:42] LABS: Glucose 135 mg/dL (80-110)
[2024-07-12 06:38] LABS: C Peptide 0.5 ng/mL (1.1-4.4)
== END ==
PROVIDERS: Family Provider Internal Medicine; PCP Internal Medicine; Referring Provider Internal Medicine; Visit Provider Internal Medicine
DX: E11.42 Type 2 diabetes mellitus with diabetic polyneuropathy (principal)
CPT/HCPCS: 36415; 82947; 84681

== ENCOUNTER → 2024-08-07 14:32 | Outpatient (CLI) | payer MEDICAID, SELFPAY ==
[2024-08-07 15:38] LABS: Glucose 194 mg/dL (70-99)
== END ==
PROVIDERS: Family Provider Internal Medicine; PCP Internal Medicine; Referring Provider Internal Medicine; Visit Provider Internal Medicine
DX: E13.69 Other specified diabetes mellitus with other specified complication (principal); E78.5 Hyperlipidemia, unspecified
CPT/HCPCS: 36415; 82947; 84681; 86341

== ENCOUNTER → 2024-08-08 13:08 | Outpatient (CLI) | payer MEDICARE, MEDICAID, SELFPAY ==
--- NOTE | 2024-08-16 09:27 | DIAB.FU ---
Follow-up Diabetes Education Assessment Name: Marie Francisco Date: 08/16/24 Time: 110-2p Dx: Type 1.5 Diabetes Marie presents for DM visit. Recent Cpeptide was low in July with repeat labs performed showing normal Cpeptide. At the time of this visit antibody labs were placed as well but pending. Type of DM changed to type 1.5. due to this Jardiance has been d/c'd. Reports he has not had his basal insulin for 3 days. States his usually does the injections but has not recently. He has previously declined learning how to inject, however today he is open to this. Also awaiting approval for 780g Medtronic insulin pump. Reports protein intake includes beef, chx, and eggs. Still eating 3-4 tortillas per meal, but reports this is less than he use to eat. Also endorses more veggies, cucumber, celery salad. Anthropometrics: Ht: 69 Wt: 166.5# 05/2024 Wt hx: 161# 02/2024 148.2# 06/30/22 146.6# 06/07/22 originally reported 159# at first RD visit Physical Activity: No program. Self-Monitoring Blood Glucose: Checking FBG but none for review today. 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 Provided appropriate educational handouts. Discussed the following topics: Reinforced CHO recs Provided injection demonstration and pt completed a return demo using demo instruments Encouraged rotation of injections and rationale Created SMART goals for patient self-care and success. Goals: Complete labs- met Try 3 tortillas per meal max- in progress Try nuts for snacks- not met Start doing your own injections- new Rotate injection sites- new Follow-up: JAVON HALE follow-up in 3-4 weeks. Rupa Tinajero RDN, [facility] Certified Diabetes Care and Welder Boilermaker P: [phone] Thank you for this referral
== END ==
PROVIDERS: Family Provider Internal Medicine; PCP Internal Medicine; Referring Provider Internal Medicine
DX: E13.9 Other specified diabetes mellitus without complications (principal); Z71.3 Dietary counseling and surveillance; Z79.4 Long term (current) use of insulin; Z79.84 Long term (current) use of oral hypoglycemic drugs
CPT/HCPCS: G0108

== ENCOUNTER → 2024-09-03 13:52 | Outpatient (CLI) | payer MEDICARE, MEDICAID, SELFPAY ==
--- NOTE | 2024-09-17 10:25 | DIAB.FU ---
Follow-up Diabetes Education Assessment Name: Marie Francisco Date: 09/03/24 Time: 2-230p Dx: Type 1.5 Diabetes Marie presents for DM visit, accompanied by his daughter. Reports more consistent veggies intake with cucumbers/celery almost q day. Eye appt with Dr. Uri lane 6 months ago. Plans to start insulin pump this month once equipment is received. Needs insulin vial rx. States he has not been doing his own injections, is still doing them. Anthropometrics: Ht: 67 Wt: 167# 08/2024 Wt hx: 166.5# 05/2024 161# 02/2024 148.2# 06/30/22 146.6# 06/07/22 originally reported 159# at first RD visit Physical Activity: No program. Self-Monitoring Blood Glucose: Checking FB, 224, 117, 177, 189, 183, 159. Most above goal. 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 Provided appropriate educational handouts. Discussed the following topics: Veggie intake Meal timing BG goals and trends Pump and CGM review vial and insulin types for pump Created SMART goals for patient self-care and success. Goals: Start doing your own injections- not met Rotate injection sites- met computer programming supervisor vials once rx'd- new Follow-up: JAVON HALE follow-up 2 weeks for insulin pump and CGM start. Rupa Tinajero RDN, [facility] Certified Diabetes Care and Contact Lens Fitter P: [phone] Thank you for this referral
== END ==
LOC: DIET 13:53
PROVIDERS: Family Provider Internal Medicine; PCP Internal Medicine
DX: E13.9 Other specified diabetes mellitus without complications (principal); Z71.3 Dietary counseling and surveillance; Z79.4 Long term (current) use of insulin; Z79.85 Long-term (current) use of injectable non-insulin antidiabetic drugs
CPT/HCPCS: G0108

== ENCOUNTER → 2024-10-15 14:00 | Outpatient (CLI) | payer MEDICARE, MEDICAID, SELFPAY ==
--- NOTE | 2024-10-15 17:14 | DIAB.FU ---
Follow-up Diabetes Education Assessment: Insulin pump and CGM start Name: Marie Francisco Date: 10/15/24 Time: 2-315p Dx: Type 1.5 Diabetes Marie presents for DM visit, accompanied by his daughter. Today he arrives with Guardian 4 CGM and 780g Medtronic insulin pump supplies and aspart via vial for pump start. Reports most meals are around 45-60g CHO, sometimes smaller meals if less hungry. Discussed set dosing for meals, small or large. His daughter, Johanna, is here to assist in learning and placement of supplies. Settings: estimated TDD: 36u basal 0.775u/hour IC: 1:13 ISF: 1:50 Last took basal at 7am, suspended basal until 7p as a result since he usually takes BID. Difficulty with downloading michele. Daughter will troubleshoot at home. Anthropometrics: Ht: 67 Wt: 168# 10/2024 Wt hx: 167# 08/2024 166.5# 05/2024 161# 02/2024 148.2# 06/30/22 146.6# 06/07/22 originally reported 159# at first RD visit Physical Activity: No program. Self-Monitoring Blood Glucose: Checking FB, 153, 187, 205, 191, 104. Most elevated Diabetes Medications: Glargine 30u BID --- d/c today Aspart via insulin pump-- new Tirzepitide 2.5mg weekly --- rx for 7.5mg Pertinent Labs: HgA1c: 9.6% 06/2023 10.4%12/2023 7.4% 06/2024 Past Medical History: (Last Reviewed 10/07/24 @ 14:23 by Shukri Marroquin MD) Mixed hyperlipidemia Pain of upper abdomen Tendinosis of left rotator cuff Type 1.5 diabetes with hyperlipidemia Type 2 diabetes mellitus with polyneuropathy Intervention: This participant was very receptive. Provided appropriate educational handouts. Discussed the following topics: CGM and insulin pump placement, precautions, education Bolusing with pump Created SMART goals for patient self-care and success. Goals: nurses supervisor vials once rx'd- met Wear CGM/pump- new bolus 20g for small meals and 45g for larger meals- new Download Medtronic michele- new Follow-up: JAVON CDCES follow-up in one week. F/u in 1 day with Medtronic SID. Rupa Tinajero RDN, [facility] Certified Diabetes Care and Tennis Ball Coverer Hand P: [phone] Thank you for this referral
== END ==
PROVIDERS: Family Provider Internal Medicine; PCP Internal Medicine
DX: Z46.81 Encounter for fitting and adjustment of insulin pump (principal); E13.9 Other specified diabetes mellitus without complications; Z71.3 Dietary counseling and surveillance; Z79.4 Long term (current) use of insulin; Z79.85 Long-term (current) use of injectable non-insulin antidiabetic drugs
CPT/HCPCS: 95249

== ENCOUNTER → 2024-10-22 13:53 | Outpatient (CLI) | payer MEDICARE, MEDICAID, SELFPAY ==
--- NOTE | 2024-10-24 10:05 | DIAB.FU ---
Follow-up Diabetes Education Assessment Name: Marie Francisco Date: 10/22/24 Time: 2-3p Dx: Type 1.5 Diabetes Marie presents for DM visit, accompanied by his granddaughter. Pulled off pump and CGM over the weekend due to alarms. States he did not know what to do or how to bolus. States he will likely go back to MDI vs pump therapy. If he decides to do so, he would likely need either meal time insulin or mixed insulin given elevations after each meal and Type 1.5 diagnosis. States he does not think the pump is giving insulin, however the pump has been on manual mode and has not transitioned into automation yet. So, likely was only administering basal insulin since he was unable to bolus. By the end of our visit he was open to retrying CGM/pump system again. Will help transition into automated mode tomorrow. Settings: estimated TDD: 36u basal 0.775u/hour IC: 1:13 ISF: 1:50 Anthropometrics: Ht: 67 Wt: 168# 10/2024 Wt hx: 167# 08/2024 166.5# 05/2024 161# 02/2024 148.2# 06/30/22 146.6# 06/07/22 originally reported 159# at first RD visit Physical Activity: No program. Self-Monitoring Blood Glucose: CGM though d/c'd over the weekend Diabetes Medications: Glargine 30u BID --- d/c Aspart via insulin pump-- new Tirzepitide 2.5mg weekly --- rx for 7.5mg Pertinent Labs: HgA1c: 9.6% 06/2023 10.4%12/2023 7.4% 06/2024 Past Medical History: (Last Reviewed 10/07/24 @ 14:23 by Shukri Marroquin MD) Mixed hyperlipidemia Pain of upper abdomen Tendinosis of left rotator cuff Type 1.5 diabetes with hyperlipidemia Type 2 diabetes mellitus with polyneuropathy Intervention: This participant was very receptive. Provided appropriate educational handouts. Discussed the following topics: CGM and insulin pump placement, precautions, education Benefits of automation vs MDI Created SMART goals for patient self-care and success. Goals: switch crew supervisor vials once rx'd- met Wear CGM/pump- continue bolus 20g for small meals and 45g for larger meals- on hold Download [employer] michele- continue Follow-up: JAVON HALE follow-up tomorrow to start automation and in 2 days for check-in and review of pump/CGM reports and education Rupa Tinajero RDN, [facility] Certified Diabetes Care and [employer] Senior Officer P: [phone] Thank you for this referral
== END ==
PROVIDERS: Family Provider Internal Medicine; PCP Internal Medicine; Referring Provider Internal Medicine
DX: E13.9 Other specified diabetes mellitus without complications (principal); Z71.3 Dietary counseling and surveillance; Z96.41 Presence of insulin pump (external) (internal); Z79.4 Long term (current) use of insulin; Z79.85 Long-term (current) use of injectable non-insulin antidiabetic drugs
CPT/HCPCS: G0108

== ENCOUNTER → 2024-10-25 08:53 | Outpatient (CLI) | payer MEDICARE, MEDICAID, SELFPAY ==
--- NOTE | 2024-10-25 09:29 | DIAB.MNTFU ---
Follow-up Diabetes Medical Nutrition Therapy Assessment Name: Marie Francisco Date: 10/25/24 Time: 90a Dx: Type 1.5 Diabetes Marie presents for DM visit. Wearing CGM and insulin pump. Not currently bolusing for meals. Daughter has set up [employer] michele but have not been able to link account for reports. Marie reports loss of feeling in feet. Though also reports limited s/s with hyperglycemia otherwise. Reports his mother had dialysis prior to her passing. States he thinks he got DM from the way he use to eat. We had a discussion about T1.5 DM pathophysiology. No changes to diet recently. Endorses limited eating frequency and portions. Generally 3-4 tortillas per meal +/- meat/eggs/beans. Worries about the pump over dosing his insulin. Keeps soda nearby as a precaution. In automation. Settings: basal 0.775u/hour IC: 1:13 ISF: 1:50. TDD: 19.6u (down from injection units) Anthropometrics: Ht: 67 Wt: 168# 10/2024 Wt hx: 167# 08/2024 166.5# 05/2024 161# 02/2024 148.2# 06/30/22 146.6# 06/07/22 originally reported 159# at first RD visit Physical Activity: No program. Self-Monitoring Blood Glucose: Improved from previous CGM wear with in range 48% at that time. TIR: per pump 40% high 60% in range 0% low average: 202mg/dl Diabetes Medications: Glargine 30u BID --- d/c Aspart via insulin pump-- new Tirzepitide 2.5mg weekly --- rx for 7.5mg Pertinent Labs: HgA1c: 9.6% 06/2023 10.4%12/2023 7.4% 06/2024 Past Medical History: (Last Reviewed 10/07/24 @ 14:23 by Shukri Marroquin MD)Mixed hyperlipidemia Pain of upper abdomen Tendinosis of left rotator cuff Type 1.5 diabetes with hyperlipidemia Type 2 diabetes mellitus with polyneuropathy Nutrition Rx: Carbohydrates: Meal:45g Snack:15-30g Nutrition Diagnosis: Nutrition and food related knowledge deficit r/t unclear about how much carb in foods and limited bolusing aeb pt report and pump info Intervention: This participant was very receptive. Provided appropriate educational handouts. Discussed the following topics: Improved TIR since last CGM report Relying on automation instead of bolusing at this time Clearing alerts in pump Brief pathophsyiology of T1.5 DM Created SMART goals for patient self-care and success. Goals: Wear CGM/pump- continue bolus 20g for small meals and 45g for larger meals- on hold Download Medtronic michele- met Clear alerts on pump- new bolus prn but can rely on automation at this time- new Follow-up: JAVON HALE follow-up in 4 days. Will need to coordinate with daughter about changing sites on . Rupa Tinajero RDN, [facility] Certified Diabetes Care and Stump Blower P: [phone] Thank you for this referral
== END ==
PROVIDERS: Family Provider Internal Medicine; PCP Internal Medicine; Referring Provider Internal Medicine
DX: E13.9 Other specified diabetes mellitus without complications (principal); Z71.3 Dietary counseling and surveillance; Z96.41 Presence of insulin pump (external) (internal); Z79.4 Long term (current) use of insulin; Z79.85 Long-term (current) use of injectable non-insulin antidiabetic drugs
CPT/HCPCS: 97803

== ENCOUNTER → 2024-10-29 13:56 | Outpatient (CLI) | payer MEDICARE, MEDICAID, SELFPAY ==
--- NOTE | 2024-10-29 14:00 | DIAB.FU ---
Follow-up Diabetes Education Assessment Name: Marie Francisco Date: 10/29/24 Time: 2-230p Dx: Type 1.5 Diabetes Marie presents for DM visit, accompanied by his daughter. Wearing CGM and insulin pump. Not currently bolusing for meals. Daughter has input BG number or bolus when around. Goal is to continue wear and become more comfortable with this to avoid MDI. So far seems to be going well. Today we linked account for reports. Similar TIR as last visit per pump. Will change sites next visit in two days. Settings: basal 0.775u/hour IC: 1:13 ISF: 1:50. TDD: 19.6u (down from injection units) Anthropometrics: Ht: 67 Wt: 168# 10/2024 Wt hx: 167# 08/2024 166.5# 05/2024 161# 02/2024 148.2# 06/30/22 146.6# 06/07/22 originally reported 159# at first RD visit Physical Activity: No program. Self-Monitoring Blood Glucose: Improved from previous CGM wear with in range 48% at that time. Last TIR: per pump 40% high 60% in range 0% low average: 202mg/dl Diabetes Medications: Glargine 30u BID --- d/c Aspart via insulin pump-- new Tirzepitide 2.5mg weekly --- rx for 7.5mg Pertinent Labs: HgA1c: 9.6% 06/2023 10.4%12/2023 7.4% 06/2024 Past Medical History: (Last Reviewed 10/07/24 @ 14:23 by Shukri Marroquin MD)Mixed hyperlipidemiaPain of upper abdomen Tendinosis of left rotator cuff Type 1.5 diabetes with hyperlipidemia Type 2 diabetes mellitus with polyneuropathy Intervention: This participant was very receptive. Provided appropriate educational handouts. Discussed the following topics: Improved TIR since last CGM report Relying on automation instead of bolusing at this time Clearing alerts in pump Brief pathophsyiology of T1.5 DM Created SMART goals for patient self-care and success. Goals: bolus 20g for small meals and 45g for larger meals- on hold Clear alerts on pump- in progress bolus prn but can rely on automation at this time- continue Charge CGM sensor prior to our visit- new Follow-up: RDN CDCES follow-up in 2 days for site change education with daughter. Rupa Tinajero RDN, [facility] Certified Diabetes Care and Trapeze Performer P: [phone] Thank you for this referral
== END ==
PROVIDERS: Family Provider Internal Medicine; PCP Internal Medicine; Referring Provider Internal Medicine
DX: E13.9 Other specified diabetes mellitus without complications (principal); Z71.3 Dietary counseling and surveillance; Z96.41 Presence of insulin pump (external) (internal); Z79.4 Long term (current) use of insulin; Z79.85 Long-term (current) use of injectable non-insulin antidiabetic drugs
CPT/HCPCS: G0108

== ENCOUNTER → 2024-10-31 09:53 | Outpatient (CLI) | payer MEDICARE, MEDICAID, SELFPAY ==
--- NOTE | 2024-10-31 10:46 | DIAB.FU ---
Follow-up Diabetes Education Assessment Name: Marie Francisco Date: 10/31/24 Time: 101040a Dx: Type 1.5 Diabetes Marie presents for DM visit, accompanied by his granddaughter. Wearing CGM and insulin pump. Not currently bolusing for meals. Goal is to continue wear and become more comfortable with this to avoid MDI. Based on insulin pump seems sensor may have stopped working two days ago and pump was in manual mode. Today we linked his michele to his pump to be able to retrieve pump reports. Settings: basal 0.775u/hour IC: 1:13 ISF: 1:50. TDD: 19.6u (down from injection units)---20.5u Anthropometrics: Ht: 67 Wt: 168# 10/2024 Wt hx: 167# 08/2024 166.5# 05/2024 161# 02/2024 148.2# 06/30/22 146.6# 06/07/22 originally reported 159# at first RD visit Physical Activity: No program. Self-Monitoring Blood Glucose: Last TIR: per pump 44% high 56% in range 0% low average: 148mg/dl Last TIR: per pump 40% high 60% in range 0% low average: 202mg/dl Diabetes Medications: Glargine 30u BID --- d/c Aspart via insulin pump-- new Tirzepitide 2.5mg weekly --- rx for 7.5mg Pertinent Labs: HgA1c: 9.6% 06/2023 10.4%12/2023 7.4% 06/2024 Past Medical History: (Last Reviewed 10/07/24 @ 14:23 by Shukri Marroquin MD)Mixed hyperlipidemiaPain of upper abdomen Tendinosis of left rotator cuff Type 1.5 diabetes with hyperlipidemia Type 2 diabetes mellitus with polyneuropathy Intervention: This participant was very receptive. Provided appropriate educational handouts. Discussed the following topics: Improved TIR since last CGM report Relying on automation instead of bolusing at this time Clearing alerts in pump Brief pathophsyiology of T1.5 DM Created SMART goals for patient self-care and success. Goals: bolus 20g for small meals and 45g for larger meals- on hold Clear alerts on pump- met bolus prn but can rely on automation at this time- continue Charge CGM sensor prior to our visit- met Leave pump michele open- new Follow-up: JAVON HALE follow-up in 7 days for site change education with daughter. Rupa Tinajero RDN, [facility] Certified Diabetes Care and Deburrer P: [phone] Thank you for this referral
== END ==
PROVIDERS: Family Provider Internal Medicine; PCP Internal Medicine; Referring Provider Internal Medicine
DX: E13.9 Other specified diabetes mellitus without complications (principal); Z71.3 Dietary counseling and surveillance; Z96.41 Presence of insulin pump (external) (internal); Z79.4 Long term (current) use of insulin; Z79.85 Long-term (current) use of injectable non-insulin antidiabetic drugs
CPT/HCPCS: G0108

== ENCOUNTER → 2024-11-07 13:36 | Outpatient (CLI) | payer MEDICARE, MEDICAID, SELFPAY ==
--- NOTE | 2024-11-07 17:19 | DIAB.MNTFU ---
Follow-up Diabetes Medical Nutrition Therapy Assessment Name: Marie Francisco Date: 11/07/24 Time: 140-215p Dx: Type 1.5 Diabetes Marie presents for DM visit. Daughter not able to make our visit today. Wearing CGM and insulin pump. Bolusing for some meals with the help of his daughter. For some reason the automation has come on and off according to reports. In automation only 30% of the time this week per reports. Manual settings seem to be going well with BG in goal until missed boluses occur. States he may be able to do some bolusing but unclear how to determine CHO. Reports 2-4 6 tortillas at meals BID with protein. Continues with salads 1x per day. Settings: basal 0.775u/hour IC: 1:13 ISF: 1:50. TDD: 19.6u (down from injection units)---20.5u---- 19.9u Anthropometrics: Ht: 67 Wt: 168# 10/2024 Wt hx: 167# 08/2024 166.5# 05/2024 161# 02/2024 148.2# 06/30/22 146.6# 06/07/22 originally reported 159# at first RD visit Physical Activity: No program. Self-Monitoring Blood Glucose: Increase in elevations from last visit however also less time in automation. TIR: per pump 9% very high 44% high 47% in range 0% low average: 191mg/dl GMI: 7.9% std dev: 40 mg/dl Last TIR: per pump 44% high 56% in range 0% low average: 148mg/dl Diabetes Medications: Aspart via insulin pump Tirzepitide rx for 7.5mg Pertinent Labs: HgA1c: 9.6% 06/2023 10.4%12/2023 7.4% 06/2024 Past Medical History: (Last Reviewed 10/07/24 @ 14:23 by Shukri Marroquin MD)Mixed hyperlipidemiaPain of upper abdomen Tendinosis of left rotator cuff Type 1.5 diabetes with hyperlipidemia Type 2 diabetes mellitus with polyneuropathy Nutrition Rx: Carbohydrates: Meal:45g Snack:15-30g Nutrition Diagnosis: Nutrition and food related knowledge deficit r/t unclear about how much carb in foods and limited bolusing aeb pt report and pump info Intervention: This participant was very receptive. Provided appropriate educational handouts. Discussed the following topics: how to bolus Encouraged BID bolusing Encouraged bolusing 30g at each meal, and/or starting with one bolus per day Reviewed site changes and directed him in completing his own site changes Created SMART goals for patient self-care and success. Goals: Leave pump michele open- met Try to bolus for 1-2 meals / day- new Follow-up: JAVON HALE follow-up in 6 days for site change education with daughter. Rupa Tinajero RDN, [facility] Certified Diabetes Care and Airplane Navigator P: [phone] Thank you for this referral
== END ==
LOC: DIET 13:38
PROVIDERS: Family Provider Internal Medicine; PCP Internal Medicine; Referring Provider Internal Medicine
DX: E13.9 Other specified diabetes mellitus without complications (principal); Z71.3 Dietary counseling and surveillance; Z96.41 Presence of insulin pump (external) (internal); Z79.4 Long term (current) use of insulin; Z79.85 Long-term (current) use of injectable non-insulin antidiabetic drugs
CPT/HCPCS: 97803

== ENCOUNTER → 2024-11-13 12:49 | Outpatient (CLI) | payer MEDICARE, MEDICAID, SELFPAY ==
--- NOTE | 2024-11-13 14:09 | DIAB.FU ---
Follow-up Diabetes Education Assessment Name: Marie Francisco Date: 11/13/24 Time: 1250-125p Dx: Type 1.5 Diabetes Marie presents for DM visit, accompanied by his daughter Johanna. Wearing CGM and insulin pump. Bolusing for some meals with the help of his daughter. Pump ran out of insulin yesterday. Took battery out and we needed to reconnect to CGM and michele. Brought all his site change supplies. Daughter wants to also learn how to do site changes. Took 30u of insulin this morning at 7am. will need temp basal to avoid lows. Settings: basal 0.775u/hour IC: 1:13 ISF: 1:50. TDD: 19.6u (down from injection units)---20.5u---- 19.9u Anthropometrics: Ht: 67 Wt: 168# 10/2024 Wt hx: 167# 08/2024 166.5# 05/2024 161# 02/2024 148.2# 06/30/22 146.6# 06/07/22 originally reported 159# at first RD visit Physical Activity: No program. Self-Monitoring Blood Glucose: No data available due to disconnection from michele. TIR: % very high % high % in range % low average: mg/dl GMI: % std dev: mg/dl Last TIR: per pump 9% very high 44% high 47% in range 0% low average: 191mg/dl GMI: 7.9% std dev: 40 mg/dl Diabetes Medications: Aspart via insulin pump Tirzepitide rx for 7.5mg Pertinent Labs: HgA1c: 9.6% 06/2023 10.4%12/2023 7.4% 06/2024 Past Medical History: (Last Reviewed 10/07/24 @ 14:23 by Shukri Marroquin MD)Mixed hyperlipidemiaPain of upper abdomen Tendinosis of left rotator cuff Type 1.5 diabetes with hyperlipidemia Type 2 diabetes mellitus with polyneuropathy Intervention: This participant was very receptive. Provided appropriate educational handouts. Discussed the following topics: how to bolus Encouraged bolusing Encouraged bolusing 30g at each meal, and/or starting with one bolus per day Reviewed site changes and directed in completing site changes Reconnected CGM and michele to pump Provided resource for site changes Set temp basal for 6 hours Created SMART goals for patient self-care and success. Goals: Leave pump michele open- met/cont Try to bolus for 1-2 meals / day- not met/continue Follow-up: JAVON HALE follow-up in 7 days for site change education with daughter. Rupa Tinajero RDN, [facility] Certified Diabetes Care and Package Checker P: [phone] Thank you for this referral
== END ==
LOC: DIET 12:50
PROVIDERS: Family Provider Internal Medicine; PCP Internal Medicine; Referring Provider Internal Medicine
DX: E13.9 Other specified diabetes mellitus without complications (principal); Z71.3 Dietary counseling and surveillance; Z96.41 Presence of insulin pump (external) (internal); Z79.4 Long term (current) use of insulin; Z79.85 Long-term (current) use of injectable non-insulin antidiabetic drugs
CPT/HCPCS: G0108

== ENCOUNTER → 2024-12-12 13:55 | Outpatient (CLI) | payer MEDICARE, MEDICAID, SELFPAY ==
--- NOTE | 2024-12-12 14:56 | DIAB.MNTFU ---
Addendum entered by Rupa Tinajero 01/07/25 17:19: 01/07/25 Daughter called today about Marie's hyperglycemia. Reports dry skin, scalp and less feeling in his feet. Pump reports indicate excessive time in manual mode and would benefit from 20% change to basal rate. Increased from 0.77 to 0.9u/hour when in manual mode. Encouraged automated mode as much as possible. Sees PCP this week per report. Original Note: Follow-up Diabetes Medical Nutrition Therapy Assessment Name: Marie Francisco Date: 12/12/24 Time: 210-240p Dx: Type 1.5 Diabetes Marie presents for DM visit, accompanied by his daughter Johanna. Wearing CGM and insulin pump. Bolusing for very few meals/snacks with the help of his daughter. Some connections issues with pump/michele/CGM. Needing review on how to bolus himself and how much to bolus. Plan for vacation has changed. Going in February with daughter now, which is helpful for site changes. Settings: basal 0.775u/hour IC: 1:13 ISF: 1:50. TDD: 19.6u (down from injection units)---20.5u---- 19.9u---- 18.5u---- 17.5u Anthropometrics: Ht: 67 Wt: 168# 10/2024 Wt hx: 167# 08/2024 166.5# 05/2024 161# 02/2024 148.2# 06/30/22 146.6# 06/07/22 originally reported 159# at first RD visit Physical Activity: No program. Self-Monitoring Blood Glucose: Limited data available due to disconnection from michele. Only in automation 4% over the last two weeks. TIR: % very high % high % in range % low average:198 mg/dl GMI: % std dev: 23.8 mg/dl Previous TIR: 9% very high 0% very high 19% high 81% in range 0% low average:159 mg/dl GMI: % std dev: 25.2 mg/dl Diabetes Medications: Aspart via insulin pump Tirzepitide rx for 7.5mg Pertinent Labs: HgA1c: 9.6% 06/2023 10.4%12/2023 7.4% 06/2024 Past Medical History: (Last Reviewed 10/07/24 @ 14:23 by Shukri Marroquin MD)Mixed hyperlipidemiaPain of upper abdomen Tendinosis of left rotator cuff Type 1.5 diabetes with hyperlipidemia Type 2 diabetes mellitus with polyneuropathy Nutrition Rx: Carbohydrates: Meal:45g Snack:15-30g Nutrition Diagnosis: Nutrition and food related knowledge deficit r/t unclear about how much carb in foods and limited bolusing aeb pt report and pump info Intervention: This participant was very receptive. Provided appropriate educational handouts. Discussed the following topics: how to bolus Encouraged bolusing Encouraged bolusing 30g at each meal Troubleshooting for connection with pump/michele/CGM Created SMART goals for patient self-care and success. Goals: Leave pump michele open- met/cont Try to bolus for 1-2 meals / day- not met/continue Bolus 30g at a meal- new Follow-up: JAVON HALE follow-up 6 weeks Rupa Tinajero RDN, [facility] Certified Diabetes Care and Senior Functional Analyst P: [phone] Thank you for this referral
== END ==
PROVIDERS: Family Provider Internal Medicine; PCP Internal Medicine; Referring Provider Internal Medicine
DX: E13.9 Other specified diabetes mellitus without complications (principal); Z71.3 Dietary counseling and surveillance; Z96.41 Presence of insulin pump (external) (internal); Z79.4 Long term (current) use of insulin; Z79.85 Long-term (current) use of injectable non-insulin antidiabetic drugs
CPT/HCPCS: 97803

== ENCOUNTER → 2025-01-08 14:25 | Outpatient (CLI) | payer MEDICARE, MEDICAID, SELFPAY ==
[2025-01-08 15:29] LABS: Hemoglobin A1C% w Est Avg Glu 7.8 % (4.0-6.0)
[2025-01-08 15:40] LABS: Blood Urea Nitrogen 15 mg/dL (9-20); Calcium 9.9 mg/dL (8.4-10.2); Carbon Dioxide 26 mmol/L (22-32); Chloride 100 mmol/L (98-107); Estimated Glomerular Filt Rate > 60 mL/min (>60); Glucose 165 mg/dL (70-99); HEMOLYSIS < 15 (0-50); Potassium 4.5 mmol/L (3.4-5.1); Sodium 136 mmol/L (137-145)
== END ==
PROVIDERS: PCP Internal Medicine; Referring Provider Internal Medicine; Visit Provider Internal Medicine
DX: E11.42 Type 2 diabetes mellitus with diabetic polyneuropathy (principal)
CPT/HCPCS: 36415; 80048; 83036

== ENCOUNTER → 2025-01-24 13:55 | Outpatient (CLI) | payer MEDICARE, MEDICAID, SELFPAY ==
--- NOTE | 2025-02-12 12:19 | DIAB.FU ---
Follow-up Diabetes Education Assessment Name: Marie Francisco Date: 01/24/25 Time: 2-235p Dx: Type 1.5 Diabetes Marie presents for DM visit. Wants to be able to bolus for himself. Daughter currently helps with this. We have reviewed this in the past, however he does need a review again on bolusing. Not storing GLP1 in refrigerator. Seems to be moving in and out of automation on pump. 57% in FRUCT In two weeks plans to go to [facility]. Daughter will be there for part of this trip. Has questions about traveling with pump and supplies. Settings: basal 0.775u/hour IC: 1:13 ISF: 1:50. TDD: 19.6u (down from injection units)---20.5u---- 19.9u---- 18.5u---- 17.5u--- 28.9u Anthropometrics: Ht: 67 Wt: 168# 10/2024 Wt hx: 167# 08/2024 166.5# 05/2024 161# 02/2024 148.2# 06/30/22 146.6# 06/07/22 originally reported 159# at first RD visit Physical Activity: No program. Self-Monitoring Blood Glucose: Limited data available due to disconnection from michele. Improved time in automation, and BG are much improved when in auto mode. TIR: 8% very high 44% high 48% in range 0% low average:187 mg/dl GMI: % std dev: 32 mg/dl Previous TIR: % very high % high % in range % low average:198 mg/dl GMI: % std dev: 23.8 mg/dl Diabetes Medications: Aspart via insulin pump Tirzepitide 10mg Pertinent Labs: HgA1c: 9.6% 06/2023 10.4%12/2023 7.4% 06/2024 Past Medical History: (Last Reviewed 10/07/24 @ 14:23 by Shukri Marroquin MD)Mixed hyperlipidemiaPain of upper abdomen Tendinosis of left rotator cuff Type 1.5 diabetes with hyperlipidemia Type 2 diabetes mellitus with polyneuropathy Intervention: This participant was very receptive. Provided appropriate educational handouts. Discussed the following topics: how to bolus Encouraged bolusing Encouraged bolusing 30g at each meal Troubleshooting for connection with pump/michele/CGM Traveling recommendations and documentation Created SMART goals for patient self-care and success. Goals: Bolus 30g at a meal- not met Refrigerate GLP1- new make sure you are in smart guard- new Bolus for correction- new Follow-up: JAVON HALE follow-up 4 weeks Rupa Tinajero RDN, [facility] Certified Diabetes Care and Board Saw Runner P: [phone] Thank you for this referral
== END ==
LOC: DIET 13:56
PROVIDERS: PCP Internal Medicine; Referring Provider Internal Medicine
DX: E13.9 Other specified diabetes mellitus without complications (principal); Z96.41 Presence of insulin pump (external) (internal); Z79.4 Long term (current) use of insulin
CPT/HCPCS: G0108

== ENCOUNTER → 2025-02-11 13:54 | Outpatient (CLI) | payer MEDICARE, MEDICAID, SELFPAY ==
--- NOTE | 2025-02-12 12:41 | DIAB.MNTFU ---
Follow-up Diabetes Medical Nutrition Therapy Assessment Name: Marie Francisco Date: 02/11/25 Time: 2-230p Dx: Type 1.5 Diabetes Marie presents for DM visit, accompanied by daughter today. Daughter still bolusing, however she is here today and we discussed her walking him through bolusing each time. They both agree to this. States he is not sure how much to bolus for foods. TIR is best it has been. Again got disconnected from michele, due to phone dying and michele disconnected to pump. No data from pump x 1 week via platform. In two weeks plans to go to [facility]. Daughter will be there for part of this trip, and she plans to work out site changes with her family there. Settings: basal 0.775u/hour IC: 1:13 ISF: 1:50. TDD: 19.6u (down from injection units)---20.5u---- 19.9u---- 18.5u---- 17.5u--- 28.9u Anthropometrics: Ht: 67 Wt: 168# 10/2024 Wt hx: 167# 08/2024 166.5# 05/2024 161# 02/2024 148.2# 06/30/22 146.6# 06/07/22 originally reported 159# at first RD visit Physical Activity: No program. Self-Monitoring Blood Glucose: Data from prior to this week due to disconnection. Improved time in auto move to 77% in Smart guard. TIR much improved. Also, after looking at data in his pump over the last week, his time in range was even better at 79%. TIR: 3% very high 28% high 69% in range 0% low average:178 mg/dl GMI: 7.4% std dev: 33 mg/dl variance: 19.5% Previous TIR: 8% very high 44% high 48% in range 0% low average:187 mg/dl GMI: % std dev: 32 mg/dl Diabetes Medications: Aspart via insulin pump Tirzepitide 10mg Pertinent Labs: HgA1c: 9.6% 06/2023 10.4%12/2023 7.4% 06/2024 Past Medical History: (Last Reviewed 01/08/25 @ 14:09 by Shukri Marroquin MD) Mixed hyperlipidemia Pain of upper abdomen Tendinosis of left rotator cuff Type 1.5 diabetes with hyperlipidemia Type 2 diabetes mellitus with polyneuropathy Nutrition Rx: Carbohydrates: Meal:45g Snack:15-30g Nutrition Diagnosis: Nutrition and food related knowledge deficit r/t unclear about how much carb in foods and limited bolusing aeb pt report and pump info Intervention: This participant was very receptive. Provided appropriate educational handouts. Discussed the following topics: how to bolus Encouraged self bolusing and support from daughter Encouraged bolusing 30g at each meal to start Troubleshooting for connection with pump/michele/CGM Traveling recommendations and documentation Meals he is currently eating and carb foods Low tx, s/s of lows Created SMART goals for patient self-care and success. Goals: Bolus 30g at a meal- not met Refrigerate GLP1- met make sure you are in smart guard- met Bolus for correction- not met Carry low tx with you- new charge phone nightly- new self bolus for meals- new Follow-up: JAVON HALE follow-up 4 weeks Rupa Tinajero RDN, [facility] Certified Diabetes Care and Polymerization Oven Operator P: [phone] Thank you for this referral
== END ==
LOC: DIET 13:55
PROVIDERS: PCP Internal Medicine; Referring Provider Internal Medicine
DX: E13.9 Other specified diabetes mellitus without complications (principal); Z71.3 Dietary counseling and surveillance; Z79.4 Long term (current) use of insulin; Z96.41 Presence of insulin pump (external) (internal); Z79.85 Long-term (current) use of injectable non-insulin antidiabetic drugs
CPT/HCPCS: 97803

== ENCOUNTER → 2025-03-21 13:52 | Outpatient (CLI) | payer MEDICARE, MEDICAID, SELFPAY ==
--- NOTE | 2025-03-25 14:51 | DIAB.MNTFU ---
Follow-up Diabetes Medical Nutrition Therapy Assessment Name: Marie Francisco Date: 03/21/25 Time: 2-240p Dx: Type 1.5 Diabetes Marie presents for DM visit. Daughter still bolusing. States he has not been bolusing for himself. Needs a review of bolusing and correction. Recently back from [facility]. Wore pump the entire trip with help of family members. Recently home 03/15. Disconnected again from phone michele/pump. Unable to access full BG data due to disconnection. States he has been eating veggies daily with his salad. Had a BG of 75mg/dl and felt low. Ate a meal and felt better per report. Does not keep sugar on him for lows. Did carry some while on vacation, as we discussed. Diet Recall: B: egg +/- 1c of rice or beef soup and coffee L: salad: celery, cucumber, avocado, dressing D: nothing OR 3-4 tortillas with beans OR 1-2 flour tortillas Settings: basal 0.775u/hour IC: 1:13 ISF: 1:50. SmartGuard time: 33% TDD: 19.6u (down from injection units)---20.5u---- 19.9u---- 18.5u---- 17.5u--- 28.9u--- 22.25u Anthropometrics: Ht: 67 Wt: 168# 10/2024 Wt hx: 167# 08/2024 166.5# 05/2024 161# 02/2024 148.2# 06/30/22 146.6# 06/07/22 originally reported 159# at first RD visit Physical Activity: No program. Self-Monitoring Blood Glucose: Data pulled from physical pump. Missing some data. TIR: ?% very high 16% high 62% in range ?% low average:148 mg/dl GMI: % std dev: mg/dl variance: % Previous TIR: 3% very high 28% high 69% in range 0% low average:178 mg/dl GMI: 7.4% std dev: 33 mg/dl variance: 19.5% Diabetes Medications: Aspart via insulin pump Tirzepitide 10mg Pertinent Labs: HgA1c: 9.6% 06/2023 10.4%12/2023 7.4% 06/2024 Past Medical History: (Last Reviewed 01/08/25 @ 14:09 by Shukri Marroquin MD) Mixed hyperlipidemia Pain of upper abdomen Tendinosis of left rotator cuff Type 1.5 diabetes with hyperlipidemia Type 2 diabetes mellitus with polyneuropathy Nutrition Rx: Carbohydrates: Meal:45g Snack:15-30g Nutrition Diagnosis: Nutrition and food related knowledge deficit r/t unclear about how much carb in foods and limited bolusing aeb pt report and pump info- new Intervention: This participant was very receptive. Provided appropriate educational handouts. Discussed the following topics: Review of how to bolus and correct Treatment of low BG and s/s Supported veggie intake Encouraged bolusing 30g at each meal to start Troubleshooting for connection with pump/michele/CGM Created SMART goals for patient self-care and success. Goals: Carry low tx with you- continue charge phone nightly- met self bolus for meals- continue Follow-up: JAVON HALE follow-up 4 weeks Rupa Tinajero RDN, [facility] Certified Diabetes Care and Relationship Manager P: [phone] Thank you for this referral
== END ==
LOC: DIET 13:52
PROVIDERS: PCP Internal Medicine; Referring Provider Internal Medicine
DX: E13.9 Other specified diabetes mellitus without complications (principal); Z96.41 Presence of insulin pump (external) (internal); Z79.4 Long term (current) use of insulin; Z79.84 Long term (current) use of oral hypoglycemic drugs; Z71.3 Dietary counseling and surveillance
CPT/HCPCS: 97803